=== PATIENT | female | born 1995 | race Caucasian/White ===

== ENCOUNTER 2017-10-08 02:30 | Inpatient (IN) | payer SELFPAY ==
[2017-10-08] MEDS: Lactated Ringers 1,000 ML 50 ML IV ×3 (03:35→11:05)
[2017-10-08 03:49] VITALS: BMI 31.1
[2017-10-08 04:06] LABS: Hematocrit 36.2 % (37-47); Hemoglobin 12.4 g/dl (12.0-15.0); Mean Corp Hgb Conc 34.3 g/gl (32-36); Mean Corpuscular Hgb 30.9 pg (27.0-32.0); Mean Corpuscular Volume 90.3 fL (81-99); Mean Platelet Vol. 10.8 fl (6.2-12.0); Platelet Count 181 K/mm3 (150-450); RBC Distribution Width CV 12.2 % (11.6-14.6); Red Blood Count 4.01 M/mm3 (4.2-5.4); White Blood Count 12.3 K/mm3 (4.4-11.0)
[2017-10-08 04:07] LABS: Scan Indicated on CBC? Y/N NO
[2017-10-08 04:14] LABS: ALB/GLOB Ratio 0.7 RATIO (0.9-2.4); AST(SGOT) 15 U/L (15-37); Alanine Aminotransfer ALT/SGPT 17 U/L (12-78); Albumin, Serum 2.9 g/dL (3.4-5.0); Alkaline Phosphatase 192 U/L (45-117); Anion Gap 12 (5-15); BUN 10 mg/dL (7-18); BUN/Creat Ratio 15.7 RATIO (10-20); Calcium,Total 8.5 mg/dL (8.5-10.1); Chloride 106 mmol/L (98-107); Creatinine, Serum 0.64 mg/dL (0.55-1.02); EST Glomerular Filtration Rate 121 mL/min (>60); Est Glom Filt Rate - Afr Amer 146 mL/min (>60); Estimated Creatinine Clearance 112.12 ml/min; Globulin 4.3 g/dL (2.2-4.2); Glucose 87 mg/dL (70-110); Potassium 3.9 mmol/L (3.5-5.1); Protein, Total 7.2 g/dL (6.4-8.2); Sodium Level 139 mmol/L (136-145)
[2017-10-08] MEDS: Nalbuphine 10 MG/ML Ampul IV (06:38)
--- NOTE | 2017-10-08 06:52 | HP.PCM_ITS ---
(1) Active labor at term Status: Acute (2) Supervision of normal first in third trimester Status: Acute Comment: SIDDHARTHA 10/07/17 gender surprise Cole ZAIDI from [facility] (3) Abnormal ultrasound Status: Acute Comment: initial finding of increased nuchal fold- fu imaging with MFM normal on 06/01/17 at [facility]. 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 bps borderline elevated. she has had a complicated by an initial abnormal ultrasound with a thickened nuchal fold that came back WNL once referred to [facility]. Pertinent Past Medical History: negative PSH: negative OB History: primigravid Prenatals: rpr NR hep b neg rubella nonimmune blood type antibody positive Allergies No Known Allergies Allergy (Unverified 10/08/17 03:51) Current Medications Acetaminophen (Tylenol) 325 - 650 mg PO Q4H PRN PRN PRN Reason: PAIN OR FEVER >100.4F Al Hydroxide/Mg Hydroxide (Mylanta Ii) 15 - 30 ml PO Q4H PRN PRN PRN Reason: INDIGESTION Citric Acid/Sodium Citrate (Bicitra) 30 ml PO UD PRN Lactated Ringer's () 1,000 mls @ 50 mls/hr IV .Q20H BREN Last Admin: 10/08/17 03:35 Dose: 50 mls/hr Penicillin G Potassium/Dextrose (Penicillin G Potassium) 3 mu in 50 mls @ 100 mls/hr IV Q4H BREN Nalbuphine HCl (Nubain) 5 - 10 mg IV Q3H PRN PRN PRN Reason: PAIN (4-10/10) Last Admin: 10/08/17 06:38 Dose: 10 mg Ondansetron HCl (Zofran) 4 mg IV Q8H PRN PRN PRN Reason: NAUSEA Promethazine HCl (Phenergan (Ll)) 6.25 - 12.5 mg IV Q4H PRN PRN; Protocol PRN Reason: IF NAUSEA PERSISTS Sodium Chloride () 5 - 15 ml IV UD BREN Last Admin: 10/08/17 04:14 Dose: Not Given Smoking Status: Never smoker Alcohol: None Drug Use: none Number of Fetus(es): 1 - FHTs 140 moderate variability reactive no decels category I tracing toco q 2 minutes Review of Systems Constitutional: Denies: Chills, Fever, Weight Change HEENT: Denies: Head Aches, Sinus Congestion, Sinus Drainage Cardiovascular: Denies: Chest Pain, Palpitations Respiratory: Denies: Cough, Shortness of breath at rest, Sputum production Gastrointestinal: Reports: Abdominal Pain. Denies: Nausea, Vomiting Genitourinary: Denies: Dysuria Musculoskeletal: Denies: Joint Pain, Joint Tenderness Skin: Denies: Rash, Wounds Neurological: Denies: Numbness, Tingling, Focal weakness Psychiatric: Denies: Anxiety, Depression, Homicidal Ideations, Suicidal Ideations Hematologic/ Lymphatic: Denies: Easy Bruising, Easy Bleeding Physical Exam General: Alert, Oriented x3, No apparent distress Cardiovascular: Regular rate Lungs: Normal air movement Abdomen: Bowel Sounds Present, Gravid Estimated gestational size: Appropriate for gestational size Presentation: Cephalic Cervix Dilation (cm): 4 Station: -1 Effacement (%): 90 Assessment/Plan Active and Suspected Problems (Last Reviewed 10/06/17 @ 11:07 by Shi Pretty) Active labor at term (Acute) IAL expectant management, minimal intervention per patient wishes. labs WNL. arom clear fluid
[2017-10-08] MEDS: Acetaminophen 325 MG Tablet PO (12:18)
[2017-10-08 12:58] LABS: Chlamydia Trachomatis by PCR Negative (Negative); Neisserai gonorrhoeae by PCR Negative (Negative); Probe Check PASS; Sample Adequacy Control PASS; Specimen Processing Control PASS
[2017-10-08] MEDS: Oxytocin 30 units/NS 500 ml 30 UNITS/500 ML IV.SOLN 334 UNITS IV (13:10)
[2017-10-08] MEDS: Oxytocin 30 units/NS 500 ml 30 UNITS/500 ML IV.SOLN 167 UNITS IV (13:40)
--- NOTE | 2017-10-08 13:47 | OP.PCM_ITS ---
(1) Active labor at term Status: Acute (2) Supervision of normal first in third trimester Status: Acute Comment: SIDDHARTHA 10/07/17 gender surprise Cole ZAIDI from [facility] (3) Abnormal ultrasound Status: Acute Comment: initial finding of increased nuchal fold- fu imaging with MFM normal on 06/01/17 at [facility]. 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 (5) Rubella non-immune status, antepartum Status: Acute Comment: MMR PP (6) Positive GBS test Status: Acute Comment: pcn in labor (7) Normal delivery at term Status: Acute Vaginal Delivery Maternal Presentation: Active Labor 22 yo @ 40w1d presents IAL Amniotic Membrane Rupture Type: Artificial Amniotic Fluid Description: Clear Final SIDDHARTHA: 10/07/17 Gestational age: 40 Weeks and 1 Days Date of Procedure: 10/08/17 Pre-Operative Diagnosis: ial Post-Operative Diagnosis: same Surgery/ Procedure Performed: Spontaneous Vaginal Delivery Type of Anesthesia: Epidural Description of Procedure: Patient began pushing and delivered the head in the VIVIAN presentation. The head was delivered atraumatically . The anterior and posterior shoulders delivered without complication followed by the rest of the and the infant was placed on the maternal abdomen. It was immediately noted that the umbilical cord had snapped upon placing the baby on the abdomen and was noted to have occurred approximately 5 cm from the umbilical insertion of the baby. It was felt that very minimal blood but had been lost from this but pediatricians were alerted to watch the baby . gentle traction was applied to the cord and the placenta delivered spontaneously immediately following it was noted to be intact with three-vessel cord. The perineum and vagina were inspected and noted to have a second-degree laceration which was repaired in the usual fashion and a small right vaginal blood vessel that was bleeding that was remedied with 3-0 Vicryl repeat.. EBL was re-100. Patient and tolerated delivery well. Presentation: VIVIAN Placental Delivery Description: Spontaneous Cord Vessel Description: 3 Vessels Cord Entanglement: None Estimated Blood Loss: 300 A gender: Female Episiotomy Description: None Laceration: None Medications given after delivery: IV Pitocin Complications: None
[2017-10-08] MEDS: 0.9% Saline Lock 10 ML Syringe IV (14:43)
[2017-10-08 18:00] VITALS: BP 141/85; PULSE 100; RESP 16; TEMP 37.6
[2017-10-08] MEDS: Naproxen 250 MG Tablet PO (18:13)
--- NOTE | 2017-10-08 19:22 | NURSING ---
1800 up to the bathroom with assistance, voids 200ml. States she feels like she emptied her bladder. FF at U but slightly to the right.
[2017-10-08 21:00] VITALS: BP 131/87; PULSE 92; RESP 18; TEMP 37.1; O2SAT 96
[2017-10-08] MEDS: Prenatal Vits Tablet 1 TABLET PO (23:02)
[2017-10-08 23:20] VITALS: BP 118/73; PULSE 95; RESP 18; TEMP 36.7; O2SAT 95
[2017-10-09 04:10] VITALS: BP 117/75; PULSE 75; RESP 18; TEMP 36.8; O2SAT 97
[2017-10-09 08:22] VITALS: BP 116/69; PULSE 74; RESP 18; TEMP 37
[2017-10-09] MEDS: Naproxen 250 MG Tablet PO (12:10)
[2017-10-09 12:30] VITALS: BP 112/65; PULSE 75; RESP 18; TEMP 36.7
--- NOTE | 2017-10-09 13:29 | NURSING ---
mild edema noted. Pt given naprosyn for inflammation. Enc. ice packs.
[2017-10-09 20:00] VITALS: BP 129/68; PULSE 84; RESP 18; TEMP 36.8; O2SAT 97
--- NOTE | 2017-10-09 21:05 | PCM.PN.OB ---
Patient Problems: Active and Suspected Problems (Last Reviewed 10/06/17 @ 11:07 by Shi Pretty) Active labor at term (Acute) Normal delivery at term (Acute) Subjective: doing well n ocomplaints - Physical Exam General: Alert, Oriented x3 Vital Signs Temp Pulse Resp BP Pulse Ox 98.2 F 84 18 129/68 H 97 10/09/17 20:00 10/09/17 20:00 10/09/17 20:00 10/09/17 20:00 10/09/17 20:00 Oxygen Delivery Method Room Air Weight: 176 lb Body Mass Index (BMI) 31.1 Intake and Output for Last 24 Hours 10/07/17 10/08/17 10/09/17 23:59 23:59 23:59 Intake Total 2830 / 2830 Output Total 1700 / 1700 Balance 1130 / 1130 Assessment/Plan Active and Suspected Problems (Last Reviewed 10/06/17 @ 11:07 by Shi Pretty) Active labor at term (Acute) Normal delivery at term (Acute) s/p routine care
--- NOTE | 2017-10-09 21:07 | PCM.DCVAG ---
Discharge Diet: No Restrictions Discharge Activity: Return to Normal Activity, May not drive while taking narcotic pain medications., May Shower May resume sexual activity in: 4-6 weeks Additional Activity Instructions:: Nothing in the vagina for 4-6 weeks. You may return to work/school in 6 weeks. Call your doctor if your incision/area has: Continuous Slow Oozing, Sudden Increased Bleeding, Increased Pain/ Swelling, Increased Redness, Foul Smelling Discharge Additional Instructions: If you experience any of the following, contact your healthcare provider. Bleeding that soaks a pad every hour for 2 hours Fever 100.4 or higher Unrelieved incision or abdominal pain Swelling, redness, discharge or bleeding from your incision or episiotomy site Your incision begins to separate Problems urinating (including inability to urinate or burning while urinating). Visual changes Severe headache Flu-like symptoms Pain or redness in one of both of your breasts Pain, warmth, tenderness or swelling in your legs, especially the calf area Frequent nausea and vomiting Symptoms of depression or anxiety If you experience any of the following, call 911 or go to the nearest Emergency Room. Chest pain Problems breathing Seizure activity Partial or complete paralysis of a body part, slurred speech, weakness or drooping of the face, or a sudden inability to walk or hold your balance Allergies/Adverse Reactions: Allergies No Known Allergies Allergy (Unverified 10/08/17 03:51) Medications to take at Discharge vitamin #56-iron 35 mg and 5 mg-folic acid 1 mg-dha capsule 1 cap PO QHS 08/14/17 Please Follow Up With: Alize Machuca MD - [phone] When: Call to make an appointment with your doctor in 6 weeks. If you had elevated Blood Pressure or 4th degree laceration you will need to be seen in 2 weeks.
--- NOTE | 2017-10-09 21:08 | DCINST_ITS ---
Discharge Diet: No Restrictions Discharge Activity: Return to Normal Activity, May not drive while taking narcotic pain medications., May Shower May resume sexual activity in: 4-6 weeks Additional Activity Instructions:: Nothing in the vagina for 4-6 weeks. You may return to work/school in 6 weeks. Call your doctor if your incision/area has: Continuous Slow Oozing, Sudden Increased Bleeding, Increased Pain/ Swelling, Increased Redness, Foul Smelling Discharge Additional Instructions: If you experience any of the following, contact your healthcare provider. * Bleeding that soaks a pad every hour for 2 hours * Fever 100.4 or higher * Unrelieved incision or abdominal pain * Swelling, redness, discharge or bleeding from your incision or episiotomy site * Your incision begins to separate * Problems urinating (including inability to urinate or burning while urinating) . * Visual changes * Severe headache * Flu-like symptoms * Pain or redness in one of both of your breasts * Pain, warmth, tenderness or swelling in your legs, especially the calf area * Frequent nausea and vomiting * Symptoms of depression or anxiety If you experience any of the following, call 911 or go to the nearest Emergency Room. * Chest pain * Problems breathing * Seizure activity * Partial or complete paralysis of a body part, slurred speech, weakness or drooping of the face, or a sudden inability to walk or hold your balance Allergies/Adverse Reactions: Allergies No Known Allergies Allergy (Unverified 10/08/17 03:51) Medications to take at Discharge vitamin #56-iron 35 mg and 5 mg-folic acid 1 mg-dha capsule 1 cap PO QHS 08/14/17 Please Follow Up With: Alize Machuca MD - [phone] When: Call to make an appointment with your doctor in 6 weeks. If you had elevated Blood Pressure or 4th degree laceration you will need to be seen in 2 weeks.
[2017-10-09] MEDS: Prenatal Vits Tablet 1 TABLET PO (22:27)
[2017-10-09] MEDS: Senna/Docusate Sodium 1 Tablet PO (22:27)
[2017-10-10 02:00] VITALS: BP 129/68; PULSE 92; RESP 18; TEMP 36.4; O2SAT 97
[2017-10-10 09:00] VITALS: BP 135/68; PULSE 72; RESP 16; TEMP 36.8; O2SAT 97
--- NOTE | 2017-10-10 11:45 | PN.OBGYN_ITS ---
Patient Problems: Active and Suspected Problems (Last Reviewed 10/06/17 @ 11:07 by Shi Pretty) Active labor at term (Acute) Normal delivery at term (Acute) Subjective: doing well n ocomplaints - Physical Exam General: Alert, Oriented x3, Cooperative Vital Signs Temp Pulse Resp BP Pulse Ox 98.3 F 72 16 135/68 H 97 10/10/17 09:00 10/10/17 09:00 10/10/17 09:00 10/10/17 09:00 10/10/17 09:00 Oxygen Delivery Method Room Air Weight: 176 lb Body Mass Index (BMI) 31.1 Intake and Output for Last 24 Hours 10/08/17 10/09/17 10/10/17 23:59 23:59 23:59 Intake Total 2830 / 2830 Output Total 1700 / 1700 Balance 1130 / 1130 Assessment/Plan Active and Suspected Problems (Last Reviewed 10/06/17 @ 11:07 by Shi Pretty) Active labor at term (Acute) Normal delivery at term (Acute) s/p routine care [facility]
--- NOTE | 2017-10-10 12:55 | NURSING ---
mother and baby id bands verified with mother. mother signed baby discharge form.
== END 2017-10-10 12:12 | disposition home or self-care (01) | DRG 774 ==
PROVIDERS: Admitting Provider Obstetrics & Gynecology; Visit Provider Obstetrics & Gynecology
DX: O48.0 Post-term pregnancy (principal); O98.82 Other maternal infectious and parasitic diseases complicating childbirth; Z3A.40 40 weeks gestation of pregnancy; O69.89X0 Labor and delivery complicated by other cord complications, not applicable or unspecified; B95.1 Streptococcus, group B, as the cause of diseases classified elsewhere; O70.1 Second degree perineal laceration during delivery; Z37.0 Single live birth; Z84.3 Family history of consanguinity
CPT/HCPCS: 59025; 59050; 80053; 85027; 86850; 86900; 87491; 87591; 99218; J7120; A4216; G0378

== ENCOUNTER → 2019-07-11 11:58 | Outpatient (CLI) | payer OTHER, SELFPAY ==
[2019-07-11 11:14] VITALS: BMI 26.7
[2019-07-11 12:49] LABS: Absolute Lymphocyte Count 1.46 X10^3/uL (0.83-4.51); Absolute Neutrophil Count 5.7 X10^3/uL (2.0-7.7); Basophil# 0.02 X10^3/uL; Basophil% 0.3 % (0-1); Eosinophil# 0.03 X10^3/uL; Eosinophils% 0.4 % (0-5); Hemoglobin 13.7 g/dL (12.0-15.0); Lymphocyte # 1.46 X10^3/ul (4.0); Lymphocyte % 18.7 % (19-41); Mean Corp Hgb Conc 34.3 g/dL (32-36); Mean Corpuscular Volume 87.7 fL (81-99); Mean Platelet Vol. 9.8 fl (6.2-12.0); Monocyte# 0.52 X10^3/uL; Monocyte% 6.7 % (0-10); NRBC Flagged by Analyzer 0 % (0-5); Neutrophil # 5.73 X10^3/uL (2.7-7.7); Neutrophil % 73.5 % (47-70); Platelet Count 251 K/mm3 (150-450); RBC Distribution Width CV 11.8 % (11.6-14.6); RBC Distribution Width SD 37.9 fl (35.1-43.9); Red Blood Count 4.56 M/mm3 (4.2-5.4); White Blood Count 7.8 K/mm3 (4.4-11.0)
[2019-07-11 14:00] LABS: HIV - WCH Non-Reactive (Nonreactive); Hepatitis B Surface Antigen Non-Reactive (Nonreactive); Rubella IgG 12.9 IU/mL
[2019-07-11 15:32] LABS: Chlamydia Trachomatis by PCR Negative (Negative); Neisserai gonorrhoeae by PCR Negative (Negative); Probe Check PASS; Sample Adequacy Control PASS; Specimen Processing Control PASS
[2019-07-12 03:08] LABS: Rapid Plasmin Reagin (RPR) NONREACTIVE (NONREACTIVE)
[2019-07-14 13:06] LABS: HPV Reflexed? NOT INDICATED
== END ==
PROVIDERS: Family Provider Family Medicine; PCP Family Medicine; Referring Provider Nurse Practitioner Women's Health; Visit Provider Nurse Practitioner Women's Health
DX: Z34.90 Encounter for supervision of normal pregnancy, unspecified, unspecified trimester (principal); Z12.4 Encounter for screening for malignant neoplasm of cervix
CPT/HCPCS: 36415; 85025; 86592; 86703; 86762; 86850; 86900; 86901; 87086; 87088; 87340; 87491; 87591; 88175; G0145

== ENCOUNTER → 2019-09-19 13:15 | Outpatient (CLI) | payer OTHER, SELFPAY ==
[2019-09-06 14:59] VITALS: BMI 26.7
--- NOTE | 2019-09-19 13:17 | US_ITS ---
STUDY: SECOND AND THIRD TRIMESTER OBSTETRICAL ULTRASOUND REASON FOR EXAM: Female, 24 years old anatomy LMP: May 01, 2019. TECHNIQUE: Transabdominal TECHNICAL QUALITY: Adequate. PRIOR ULTRASOUND: None. FINDINGS: There is a single intrauterine fetus. The fetus is in a transverse lie with the head on the maternal right side. There is demonstrated cardiac activity with a heart rate of 152 bpm. There is a normal amniotic fluid volume. The largest amniotic fluid pocket measures 6.0 cm x 4.7 cm. The amniotic fluid index (MAYRA) is within normal limits. The placenta is anterior in location and is not low lying. There are Grade 0 placental changes. The cervix measures 4.2 cm in length. The bilateral adnexal regions are normal. BIOMETRY: BPD: 4.44 cm: 19 weeks, 3 days HC: 17.34 cm: 19 weeks, 6 days AC: 15.51 cm: 20 weeks, 4 days FL: 3.21 cm: 20 weeks, 0 days CI: 73% FL/BPD: 72% FL/HC: FL/AC: 21% HC/AC: 1.12 age by current US: 19 weeks, 6 days. SIDDHARTHA by current US: February 07, 2020. Estimated weight: 344 grams, +/- 51 grams, 45 %. Age by LMP: 20 weeks, 1 days. SIDDHARTHA by LMP: February 05, 2020. ANATOMY: Gender: Female Cranium: Normal lateral ventricles. Normal choroid plexus. Normal cerebellum. Normal cisterna magna. Normal face, nose and lips. Chest: Normal 4-chamber heart. Abdomen/Pelvis: Normal diaphragm. Normal stomach. Normal abdominal wall. Normal cord insertion. Normal 3 vessel cord. Normal kidneys. Normal bladder. Spine: Limited visualization of the spine. Follow-up is recommended. Extremities: Normal bilateral upper extremities. Normal bilateral lower extremities. US/OB Anatomy Scan IMPRESSION: Single live intrauterine gestation with a mean gestational age of 19 weeks and 6 days. Limited visualization of the spine. Follow-up examination is recommended. Electronically Signed: Juvencio Cabrera, at 15:56 EST , Service support ,
== END ==
PROVIDERS: Family Provider Family Medicine; PCP Family Medicine; Referring Provider Obstetrics & Gynecology; Visit Provider Obstetrics & Gynecology
DX: Z34.80 Encounter for supervision of other normal pregnancy, unspecified trimester (principal)
CPT/HCPCS: 76805

== ENCOUNTER → 2019-11-22 14:41 | Outpatient (CLI) | payer OTHER, SELFPAY ==
[2019-11-02 15:29] VITALS: BMI 26.7
[2019-11-22 15:13] LABS: Absolute Lymphocyte Count 1.49 X10^3/uL (0.83-4.51); Absolute Neutrophil Count 5.7 X10^3/uL (2.0-7.7); Basophil# 0.01 X10^3/uL; Basophil% 0.1 % (0-1); Eosinophil# 0.03 X10^3/uL; Eosinophils% 0.4 % (0-5); Lymphocyte # 1.49 X10^3/ul (4.0); Lymphocyte % 19.1 % (19-41); Mean Corp Hgb Conc 34.3 g/dL (32-36); Mean Corpuscular Hgb 31.2 pg (27.0-32.0); Mean Corpuscular Volume 90.9 fL (81-99); Mean Platelet Vol. 9.3 fl (6.2-12.0); Monocyte# 0.55 X10^3/uL; Monocyte% 7.1 % (0-10); NRBC Flagged by Analyzer 0 % (0-5); Neutrophil # 5.68 X10^3/uL (2.7-7.7); Neutrophil % 72.8 % (47-70); Platelet Count 203 K/mm3 (150-450); RBC Distribution Width CV 12.2 % (11.6-14.6); Red Blood Count 3.85 M/mm3 (4.2-5.4); White Blood Count 7.8 K/mm3 (4.4-11.0)
[2019-11-22 15:19] LABS: Glucose Challenge Gest 1H 50g 128 mg/dL (70-140)
== END ==
PROVIDERS: PCP Family Medicine; Referring Provider Obstetrics & Gynecology; Visit Provider Obstetrics & Gynecology
DX: Z34.80 Encounter for supervision of other normal pregnancy, unspecified trimester (principal)
CPT/HCPCS: 36415; 82950; 85025

== ENCOUNTER → 2020-01-14 | Outpatient (CLI) | payer OTHER, SELFPAY ==
[2020-01-14 14:27] VITALS: BMI 26.7
== END | disposition home or self-care (01) ==
PROVIDERS: PCP Family Medicine; Visit Provider Obstetrics & Gynecology
DX: Z34.93 Encounter for supervision of normal pregnancy, unspecified, third trimester (principal); Z3A.36 36 weeks gestation of pregnancy
CPT/HCPCS: 87077; 87081; 87186

== ENCOUNTER 2020-01-21 15:45 | Outpatient (CLI) | payer OTHER, SELFPAY ==
[2020-01-21 15:09] VITALS: BMI 26.7
[2020-01-21 15:58] VITALS: BP 137/90; PULSE 76
[2020-01-21 16:13] VITALS: BP 131/89; PULSE 73
[2020-01-21 16:20] VITALS: BMI 30.7
[2020-01-21 16:28] VITALS: BP 118/83; PULSE 86
[2020-01-21 16:44] VITALS: BP 129/86; PULSE 80
[2020-01-21 16:46] LABS: Hematocrit 34.7 % (37-47); Hemoglobin 11.9 g/dL (12.0-15.0); Mean Corp Hgb Conc 34.3 g/dL (32-36); Mean Corpuscular Hgb 30.6 pg (27.0-32.0); Mean Corpuscular Volume 89.2 fL (81-99); Mean Platelet Vol. 10.3 fl (6.2-12.0); Platelet Count 182 K/mm3 (150-450); RBC Distribution Width CV 12.5 % (11.6-14.6); RBC Distribution Width SD 39.8 fl (35.1-43.9); Red Blood Count 3.89 M/mm3 (4.2-5.4); White Blood Count 7.5 K/mm3 (4.4-11.0)
[2020-01-21 17:09] LABS: Protein, Urine (Random) 11.1 mg/dL (<11.9); Protein:Creat Ratio 209 mg/g CRE (0-200)
[2020-01-21 17:13] VITALS: BP 132/83; PULSE 87
--- NOTE | 2020-01-21 17:16 | OB.TRI.PN ---
Progress Notes Date of Service: 01/21/20 Progress Note: Patient presents for triage evaluation secondary to elevated bp in office FHT: 140 Moderate variability reactive no decelerations category I tracing [place]: irregular Contractions Assessment and plan: elevated bps- repeat all WNL and labs normal, Reactive NST, reassuring maternal and status patient discharged to home to follow-up as scheduled. See problem list details for additional plan information. Laboratory Studies: Laboratory Tests 01/21/20 01/21/20 Range/Units 16:30 16:30 WBC 7.5 (4.4-11.0) K/mm3 RBC 3.89 L (4.2-5.4) M/mm3 Hgb 11.9 L (12.0-15.0) g/dL Hct 34.7 L (37-47) % MCV 89.2 (81-99) fL MCH 30.6 (27.0-32.0) pg MCHC 34.3 (32-36) g/dL RDW Std Deviation 39.8 (35.1-43.9) fl RDW Coeff of Jovita 12.5 (11.6-14.6) % Plt Count 182 (150-450) K/mm3 MPV 10.3 (6.2-12.0) fl U Random Total Protein 11.1 (<11.9) mg/dL Urine Creatinine 53.20 (NO RANGE EST.) mg/dL Protein/Creatinin Ratio 209 H (0-200) mg/g CRE - Problem List (1) Elevated blood pressure affecting in third trimester, antepartum Status: Acute Comment: seen in triage 01/20- repeta bps WNL and labs WNL no proteinuria. reviewed precautions Multi Select Codes - Urinary/Genital Urinary/Genital CPT Codes: 07014-98 non-stress test Interp
[2020-01-21 17:27] LABS: AST(SGOT) 14 U/L (15-37); Alanine Aminotransfer ALT/SGPT 13 U/L (13-56); Creatinine, Serum 0.58 mg/dL (0.55-1.02); EST Glomerular Filtration Rate 131 mL/min (>60); Est Glom Filt Rate - Afr Amer 159 mL/min (>60); Estimated Creatinine Clearance 136.39 ml/min; Uric Acid 4.5 mg/dL (2.6-6.0)
[2020-01-21 17:38] LABS: International Normalized Ratio 0.9; Prothrombin Time (Protime)PT. 12.1 SECONDS (11.7-14.9)
[2020-01-21 17:39] LABS: Partial Thromboplast Time 27.2 Seconds (24.1-36.2)
== END 2020-01-21 18:00 | disposition home or self-care (01) ==
LOC: WPOUT 15:53 → WP 15:54
PROVIDERS: PCP Family Medicine; Referring Provider Obstetrics & Gynecology; Visit Provider Obstetrics & Gynecology
DX: O26.899 Other specified pregnancy related conditions, unspecified trimester (principal); R03.0 Elevated blood-pressure reading, without diagnosis of hypertension; Z3A.00 Weeks of gestation of pregnancy not specified
CPT/HCPCS: 36415; 59025; 59050; 82565; 82570; 84156; 84450; 84460; 84550; 85027; 85610; 85730; 99218; G0378

== ENCOUNTER 2020-01-25 13:10 | Outpatient (CLI) | payer OTHER, SELFPAY ==
[2020-01-25 13:22] VITALS: TEMP 36.8; O2SAT 96
[2020-01-25 13:24] VITALS: BP 116/81; PULSE 91
[2020-01-25 13:39] VITALS: BP 118/76; PULSE 85
[2020-01-25 13:48] VITALS: BMI 30.3
[2020-01-25 13:51] LABS: Hematocrit 33.2 % (37-47); Hemoglobin 11.6 g/dL (12.0-15.0); Mean Corp Hgb Conc 34.9 g/dL (32-36); Mean Corpuscular Hgb 31.4 pg (27.0-32.0); Mean Platelet Vol. 10.1 fl (6.2-12.0); Platelet Count 182 K/mm3 (150-450); RBC Distribution Width CV 12.5 % (11.6-14.6); RBC Distribution Width SD 40.4 fl (35.1-43.9); Red Blood Count 3.69 M/mm3 (4.2-5.4); White Blood Count 7.3 K/mm3 (4.4-11.0)
[2020-01-25 13:54] VITALS: BP 117/78; PULSE 79
[2020-01-25 14:01] LABS: Prothrombin Time (Protime)PT. 12.3 SECONDS (11.7-14.9)
[2020-01-25 14:03] LABS: Protein, Urine (Random) 11.5 mg/dL (<11.9); Protein:Creat Ratio 156 mg/g CRE (0-200)
[2020-01-25 14:06] LABS: AST(SGOT) 14 U/L (15-37); Alanine Aminotransfer ALT/SGPT 12 U/L (13-56); Creatinine, Serum 0.68 mg/dL (0.55-1.02); EST Glomerular Filtration Rate 109 mL/min (>60); Est Glom Filt Rate - Afr Amer 132 mL/min (>60); Estimated Creatinine Clearance 116.34 ml/min
[2020-01-25 14:09] VITALS: BP 112/75; PULSE 89
--- NOTE | 2020-01-25 14:11 | OB.TRI.PN_ITS ---
Progress Notes Date of Service: 01/25/20 Progress Note: Patient presents for triage evaluation secondary to abdominal pain and fht reassuring Assessment and plan: Nominal pain and all normal blood pressures but preeclampsia labs sent due to recent borderline elevated pressures. Reactive NST, reassuring maternal and status patient discharged to home to follow- up as scheduled. See problem list details for additional plan information. Laboratory Studies: Laboratory Tests 01/25/20 01/25/20 01/25/20 Range/Units 13:42 13:42 13:42 WBC (4.4-11.0) K/mm3 RBC (4.2-5.4) M/mm3 Hgb (12.0-15.0) g/dL Hct (37-47) % MCV (81-99) fL MCH (27.0-32.0) pg MCHC (32-36) g/dL RDW Std Deviation (35.1-43.9) fl RDW Coeff of Jovita (11.6-14.6) % Plt Count (150-450) K/mm3 MPV (6.2-12.0) fl PT 12.3 (11.7-14.9) SECONDS INR 1.0 APTT 26.0 (24.1-36.2) Seconds Creatinine 0.68 (0.55-1.02) mg/dL Estim Creat Clear Calc 116.34 ml/min Est GFR (MDRD) Af Amer 132 (>60) mL/min Est GFR (MDRD) Non-Af 109 (>60) mL/min Uric Acid 5.0 (2.6-6.0) mg/dL AST 14 L (15-37) U/L ALT 12 L (13-56) U/L U Random Total Protein 11.5 (<11.9) mg/dL Urine Creatinine 73.70 (NO RANGE EST.) mg/dL Protein/Creatinin Ratio 156 (0-200) mg/g CRE 01/25/20 Range/Units 13:42 WBC 7.3 (4.4-11.0) K/mm3 RBC 3.69 L (4.2-5.4) M/mm3 Hgb 11.6 L (12.0-15.0) g/dL Hct 33.2 L (37-47) % MCV 90.0 (81-99) fL MCH 31.4 (27.0-32.0) pg MCHC 34.9 (32-36) g/dL RDW Std Deviation 40.4 (35.1-43.9) fl RDW Coeff of Jovita 12.5 (11.6-14.6) % Plt Count 182 (150-450) K/mm3 MPV 10.1 (6.2-12.0) fl PT (11.7-14.9) SECONDS INR APTT (24.1-36.2) Seconds Creatinine (0.55-1.02) mg/dL Estim Creat Clear Calc ml/min Est GFR (MDRD) Af Amer (>60) mL/min Est GFR (MDRD) Non-Af (>60) mL/min Uric Acid (2.6-6.0) mg/dL AST (15-37) U/L ALT (13-56) U/L U Random Total Protein (<11.9) mg/dL Urine Creatinine (NO RANGE EST.) mg/dL Protein/Creatinin Ratio (0-200) mg/g CRE
== END 2020-01-25 14:25 | disposition home or self-care (01) ==
LOC: WPOUT 13:14 → OBT 13:14
PROVIDERS: PCP Family Medicine; Referring Provider Obstetrics & Gynecology; Visit Provider Obstetrics & Gynecology
DX: O26.899 Other specified pregnancy related conditions, unspecified trimester (principal); R10.9 Unspecified abdominal pain; Z3A.00 Weeks of gestation of pregnancy not specified
CPT/HCPCS: 36415; 59025; 59050; 82565; 82570; 84156; 84450; 84460; 84550; 85027; 85610; 85730; 99218; G0378

== ENCOUNTER 2020-01-30 02:40 | Inpatient (IN) | payer SELFPAY, OTHER ==
[2019-07-11 11:14] VITALS: BMI 26.7
[2020-01-28 16:16] VITALS: BMI 30.3
[2020-01-30] VITALS (38 sets, daily range): BP systolic 104–134; BP diastolic 65–91; PULSE 57–114; RESP 16–18; TEMP 36.4–37.6; O2SAT 83–100; BMI 29.9
[2020-01-30] MEDS: Lactated Ringers 1,000 ML 50 ML IV (02:50)
[2020-01-30] MEDS: Lactated Ringers 500 ML 999 ML IV (02:50)
[2020-01-30 03:04] LABS: Absolute Lymphocyte Count 1.26 X10^3/uL (0.83-4.51); Absolute Neutrophil Count 3.4 X10^3/uL (2.0-7.7); Basophil# 0.01 X10^3/uL; Basophil% 0.2 % (0-1); Hematocrit 34.7 % (37-47); Hemoglobin 11.8 g/dL (12.0-15.0); Lymphocyte # 1.26 X10^3/ul (4.0); Lymphocyte % 24.5 % (19-41); Mean Corpuscular Hgb 30.4 pg (27.0-32.0); Mean Corpuscular Volume 89.4 fL (81-99); Mean Platelet Vol. 10.4 fl (6.2-12.0); Monocyte# 0.45 X10^3/uL; Monocyte% 8.7 % (0-10); NRBC Flagged by Analyzer 0 % (0-5); Neutrophil # 3.41 X10^3/uL (2.7-7.7); Neutrophil % 66.2 % (47-70); Platelet Count 159 K/mm3 (150-450); RBC Distribution Width CV 12.4 % (11.6-14.6); RBC Distribution Width SD 39.8 fl (35.1-43.9); Red Blood Count 3.88 M/mm3 (4.2-5.4); White Blood Count 5.2 K/mm3 (4.4-11.0)
--- NOTE | 2020-01-30 03:15 | PCM.HP.OB ---
- Problem List (1) Active labor at term Status: Acute (2) GBS (group B Streptococcus carrier), +RV culture, currently Status: Acute (3) Twin with loss and retention of one fetus, antepartum Status: Acute Comment: nonviable twin loss approx 7wk. (4) Supervision of other normal Status: Acute Comment: PRR Grav 2/ SIDDHARTHA PC Keyonna Spouse Chris- normal anatomy (5) Status: Acute Qualifiers: (6) Consanguinity Status: Acute Comment: patient and are 3rd cousins History Date of Admission: 10/08/17 Final SIDDHARTHA: 02/05/20 Gestational age: 39 Weeks and 1 Days History of this : This is a 25 year-old, presents at 39 weeks gestational age in active labor 5 cm dilated. Patient is a history of a previous term uncomplicated vaginal delivery. She has had contractions increasing over the last couple of hours. Medical History: Medical History (Last Reviewed 01/28/20 @ 15:20 by Chapis Hardy) Consanguinity (Acute) Z84.3 patient and are 3rd cousins Allergies No Known Allergies Allergy (Verified 01/30/20 02:37) Home Medications: Home Medications Sertraline HCl 50 mg PO DAILY 01/30/20 Smoking Status: Never smoker Alcohol: None NST - FHR Rate Baby A Baseline: 130 Variability:: Moderate Accelerations:: 15 x 15 Decelerations:: None NST Reactive:: Yes FHR Category:: Category I Uterine Activity:: irregular History Past Pregnancies: Past Pregnancies Pregancy History 2 Elective abortions Hx Para 1 Spontaneous abortions Hx # Term Pregnancies Ectopic pregnancies Hx # Pregnancies Multiple births # of living children 1 Past Pregnancies Del. Date Name GA/Weeks Outcome Route Bth Weight Infant Gen Labor Lgth Anesthesia Del Locatn Provider FOB 10/08/17 Keyonna live - full term 7lbs 4 ounces SM Labs: Mom's Labs & Results 01/30/20 01/30/20 02:50 02:50 WBC 5.2 RBC 3.88 L Hgb 11.8 L Hct 34.7 L MCV 89.4 MCH 30.4 MCHC 34.0 RDW Std Deviation 39.8 RDW Coeff of Jovita 12.4 Plt Count 159 MPV 10.4 Immature Gran % (Auto) 0.400 Neut % (Auto) 66.2 Lymph % (Auto) 24.5 [place] % (Auto) 8.7 Eos % (Auto) 0.0 Baso % (Auto) 0.2 Absolute Neuts (auto) 3.4 Absolute Lymphs (auto) 1.26 Nucleated RBC % 0 Blood Type Pending Antibody Screen Pending Course Did the patient receive Yes care? Labs Blood Type: O RH: POSITIVE RPR/VDRL/Syphilis Nonreactive Rubella status Immune HbSAg Negative Date Done: 07/11/19 Chlamydia Negative Gonorrhea Negative HIV/AIDS Non-Reactive Group B Strep: Positive Current Obstetrical History Gestational Diabetes No Incompetent Cervix No Infertility No IUGR No Macrosomia No Hypertension/Pre-eclampsia Yes: borderline BP, pre-e labs drawn and WNL Placenta Previa/Abruption No PTL/PROM No Uterine anomaly No Oligohydramnios No Polyhydramnios No Multiple gestation Yes: 7 week loss of twin Past Medical History Asthma No Diabetes No Hypertension No Heart disease No Mitral valve prolapse No Neurologic/Seizure disorder/ No Migraines Kidney disease No Liver disease No Varicosities No Clotting disorders/Hx of DVT No Thyroid Dysfunction No Other medical diseases No Psychiatric disorders Yes: depression Major trauma No Abnormal PAP smear No Sleep apnea No Mammogram in the last 2 years No Social History Marital Status: Alleged father yvonne Hx Smoking No Smoking Status Never smoker How long have you used n/a substances (years)? Expected Infant Delivery Method: Spontaneous Vaginal Review of Systems Constitutional: Denies: Fever, Malaise Eyes: Denies: Blurred vision, Vision Change HEENT: Denies: Head Aches, Visual Changes Cardiovascular: Denies: Chest Pain, Palpitations Respiratory: Denies: Cough, Shortness of Breath, Wheezing Gastrointestinal: Denies: Abdominal Pain, Diarrhea, Nausea, Vomiting Genitourinary: Denies: Dysuria, Hematuria Musculoskeletal: Denies: Joint Pain, Muscle pain Skin: Denies: Lesions, Rash Neurological: Denies: Blurred vision, Focal weakness, Headaches Psychiatric: Denies: Anxiety, Depression Endocrine: Denies: Heat/ Cold Intolerance Hematologic/ Lymphatic: Denies: Easy Bruising, Easy Bleeding Physical Exam Vitals: Vital Signs Temp Pulse BP Pulse Ox 98.4 F 82 130/86 H 96 01/30/20 02:27 01/30/20 02:27 01/30/20 02:27 01/30/20 02:27 General: Alert, Cooperative, No apparent distress HEENT: Atraumatic, Normocephalic. Negative for: Thyromegaly, Lymphadenopathy Cardiovascular: Regular rate Lungs: Normal air movement Abdomen: Soft, Non Tender, Gravid Neurological: Deep Tendon Reflexes 2+/4 and Symmetrical, Neuro grossly intact. Negative for: Clonus PRESCHO[employer] DIRECTOR: Normal external genitalia. Negative for: Vulvar lesions Estimated gestational size: Appropriate for gestational size Presentation: Cephalic Cervix Dilation (cm): 5 Assessment/Plan All Active Problems (Last Reviewed 01/28/20 @ 15:20 by Chapis Hardy) Elevated blood pressure affecting in third trimester, antepartum (Acute) Active labor at term (Acute) GBS (group B Streptococcus carrier), +RV culture, currently (Acute) Twin with loss and retention of one fetus, antepartum (Acute) Supervision of other normal (Acute) (Acute) Consanguinity (Acute) This is a 25 year-old, at 39 weeks gestational age presents IAL 5 cm dilated Patient presents IAL, plan expectant management for , pitocin/AROM if needed. Pain management: plans epidural. GBS positive plan IV PCN. Management of any complications: none I have reviewed the [facility] and made any clinically relevant updates.
[2020-01-30] MEDS: Ondansetron 4 MG/2 ML Vial IV (03:47)
[2020-01-30] MEDS: fentaNYL-bupivacaine (epidural) 100 ML BAG EPIDURAL ×2 (04:08→08:56)
[2020-01-30] MEDS: 0.9% Saline Lock 10 ML Syringe IV (06:03)
[2020-01-30] MEDS: proCHLORPERazine 10 MG/2 ML Vial IV (06:03)
[2020-01-30] MEDS: Lactated Ringers 1,000 ML 200 ML IV (07:57)
[2020-01-30] MEDS: Oxytocin 30 units/NS 500 ml 30 UNITS/500 ML IV.SOLN 334 UNITS IV (09:56)
--- NOTE | 2020-01-30 11:30 | OP.PCM_ITS ---
Problem List (1) Active labor at term Status: Acute (2) GBS (group B Streptococcus carrier), +RV culture, currently Status: Acute (3) Twin with loss and retention of one fetus, antepartum Status: Acute Comment: nonviable twin loss approx 7wk. (4) Supervision of other normal Status: Acute Comment: PRR Grav 2/1 SIDDHARTHA PC Keyonna Spouse Chris- normal anatomy (5) Status: Acute Qualifiers: (6) Consanguinity Status: Acute Comment: patient and are 3rd cousins Vaginal Delivery Maternal Presentation: Active Labor Amniotic Membrane Rupture Type: Artificial Amniotic Fluid Description: Clear Date of Procedure: 01/31/20 Pre-Operative Diagnosis: ial term Post-Operative Diagnosis: same Surgery/ Procedure Performed: Spontaneous Vaginal Delivery Type of Anesthesia: Epidural Description of Procedure: Patient began pushing and delivered the head in the KAT presentation. The head was delivered atraumatically . The anterior and posterior shoulders delivered without complication followed by the rest of the and the infant was placed on the maternal abdomen. Delayed cord clamping was employed for approximately 60 seconds. Cord was clamped and cut and gentle traction was applied to the cord and the placenta delivered spontaneously immediately following it was noted to be intact with three-vessel cord. The perineum and va danielle were inspected and any lacerations repaired. EBL was 200 cc. Patient and tolerated delivery well. Placental Delivery Description: Spontaneous Placenta Disposition: [facility] Select Codes - Urinary/Genital Urinary/Genital CPT Codes: 32432 Vaginal Delivery [facility]
[2020-01-30] MEDS: Naproxen 250 MG Tablet 500 MG PO (19:32)
[2020-01-31 01:40] VITALS: BP 112/76; PULSE 62; RESP 18; TEMP 36.2
[2020-01-31 06:18] VITALS: BP 109/75; PULSE 57; RESP 16; TEMP 36.2
[2020-01-31 07:47] VITALS: BP 106/71; PULSE 57; RESP 16; TEMP 36.4
--- NOTE | 2020-01-31 11:20 | DCINST_ITS ---
Discharge Diet: No Restrictions Discharge Activity: Return to Normal Activity, May not drive while taking narcotic pain medications., May Shower May resume sexual activity in: 4-6 weeks Call your doctor if your incision/area has: Continuous Slow Oozing, Sudden Increased Bleeding, Increased Pain/ Swelling, Increased Redness, Foul Smelling Discharge Additional Instructions: If you experience any of the following, contact your healthcare provider. * Bleeding that soaks a pad every hour for 2 hours * Fever 100.4 or higher * Unrelieved incision or abdominal pain * Swelling, redness, discharge or bleeding from your incision or episiotomy site * Your incision begins to separate * Problems urinating (including inability to urinate or burning while urinating). * Visual changes * Severe headache * Flu-like symptoms * Pain or redness in one of both of your breasts * Pain, warmth, tenderness or swelling in your legs, especially the calf area * Frequent nausea and vomiting * Symptoms of depression or anxiety If you experience any of the following, call 911 or go to the nearest Emergency Room. * Chest pain * Problems breathing * Seizure activity * Partial or complete paralysis of a body part, slurred speech, weakness or drooping of the face, or a sudden inability to walk or hold your balance Allergies/Adverse Reactions: Allergies No Known Allergies Allergy (Verified 01/30/20 02:37) Medications to take at Discharge Sertraline HCl 50 mg PO DAILY 01/30/20 Please Follow Up With: Alize Machuca MD - [phone] When: Call to make an appointment with your doctor in 6 weeks. If you had elevated Blood pressure or 4th degree laceration you will need to be seen in 2 weeks. Primary Care Physician: Musa Torres DO [Primary Care Provider] - Test Results: Test results from this visit will be discussed in further detail at your follow- up appointment, if applicable.
--- NOTE | 2020-01-31 11:20 | PCM.PN.OB ---
Patient Problems: Active and Suspected Problems (Last Reviewed 01/28/20 @ 15:20 by Chapis Hardy) Active labor at term (Acute) Subjective: doing well no complaints pain controlled no CP SOB N V ambulating well tolerating po lochia moderate, going well - Physical Exam Vitals/I&O's: Vital Signs Temp Pulse Resp BP Pulse Ox 97.5 F L 57 L 16 106/71 99 01/31/20 07:47 01/31/20 07:47 01/31/20 07:47 01/31/20 07:47 01/30/20 12:00 Oxygen Delivery Method Room Air Weight: 186 lb Body Mass Index (BMI) 29.9 Intake and Output for Last 24 Hours 01/29/20 01/30/20 01/31/20 23:59 23:59 23:59 Intake Total 2667.50 / 2667.50 Output Total 1000 / 1000 Balance 1667.50 / 1667.50 General: Alert, Oriented x3 Current Medications Acetaminophen (Tylenol) 1,000 mg PO Q8H PRN PRN PRN Reason: Pain Score 1-3/10 Bisacodyl (Dulcolax) 10 mg RECTAL UD PRN PRN Reason: If no BM Dibucaine (Dibucaine) 1 applic TOPICAL TID PRN PRN; Protocol PRN Reason: Discomfort Hydrocortisone (Hytone) 1 applic TOPICAL TID PRN PRN; Protocol PRN Reason: Discomfort Methylergonovine Maleate (Methergine) 0.2 mg IM X1 PRN PRN Reason: Excess bleeding/uterine atony Naproxen (Naprosyn) 500 mg PO Q8H PRN PRN PRN Reason: Pain Score 1-3/10 Last Admin: 01/30/20 19:32 Dose: 500 mg Documented by: Ondansetron HCl (Zofran) 4 mg IV Q4H PRN PRN PRN Reason: Nausea Oxycodone HCl (Oxyir) 5 - 10 mg PO Q4H PRN PRN PRN Reason: Pain Score 4-10/10 Senna/Docusate Sodium (Senokot-S, Yumiko-Colace) 1 - 2 tablet PO DAILY PRN PRN PRN Reason: Constipation Simethicone (Mylicon) 80 mg PO PCHS PRN PRN Reason: Indigestion/Stomach pain Sodium Chloride () 5 - 15 ml IV UD PRN PRN Reason: SALINE FLUSH Medical Necessity - Tobacco Use Smoking Status: Never smoker Assessment/Plan All Active Problems (Last Reviewed 01/28/20 @ 15:20 by Chapis Hardy) Elevated blood pressure affecting in third trimester, antepartum (Acute) Active labor at term (Acute) GBS (group B Streptococcus carrier), +RV culture, currently (Acute) Twin with loss and retention of one fetus, antepartum (Acute) Supervision of other normal (Acute) (Acute) Consanguinity (Acute) s/p PPD # 1 1. routine post delivery care 2. breast feeding- support given 3. rh positive 4. rubella immune
--- NOTE | 2020-01-31 11:20 | PCM.DCVAG ---
Discharge Diet: No Restrictions Discharge Activity: Return to Normal Activity, May not drive while taking narcotic pain medications., May Shower May resume sexual activity in: 4-6 weeks Call your doctor if your incision/area has: Continuous Slow Oozing, Sudden Increased Bleeding, Increased Pain/ Swelling, Increased Redness, Foul Smelling Discharge Additional Instructions: If you experience any of the following, contact your healthcare provider. Bleeding that soaks a pad every hour for 2 hours Fever 100.4 or higher Unrelieved incision or abdominal pain Swelling, redness, discharge or bleeding from your incision or episiotomy site Your incision begins to separate Problems urinating (including inability to urinate or burning while urinating). Visual changes Severe headache Flu-like symptoms Pain or redness in one of both of your breasts Pain, warmth, tenderness or swelling in your legs, especially the calf area Frequent nausea and vomiting Symptoms of depression or anxiety If you experience any of the following, call 911 or go to the nearest Emergency Room. Chest pain Problems breathing Seizure activity Partial or complete paralysis of a body part, slurred speech, weakness or drooping of the face, or a sudden inability to walk or hold your balance Allergies/Adverse Reactions: Allergies No Known Allergies Allergy (Verified 01/30/20 02:37) Medications to take at Discharge Sertraline HCl 50 mg PO DAILY 01/30/20 Please Follow Up With: Alize Machuca MD - [phone] When: Call to make an appointment with your doctor in 6 weeks. If you had elevated Blood pressure or 4th degree laceration you will need to be seen in 2 weeks. Primary Care Physician: Musa Torres DO [Primary Care Provider] - Test Results: Test results from this visit will be discussed in further detail at your follow-up appointment, if applicable.
[2020-01-31 14:01] VITALS: BP 120/88; PULSE 70; RESP 16; TEMP 36.6; O2SAT 98
== END 2020-01-31 15:00 | disposition home or self-care (01) | DRG 807 ==
LOC: WPOUT 02:41 → WP 02:41
PROVIDERS: Admitting Provider Obstetrics & Gynecology; PCP Family Medicine; Visit Provider Obstetrics & Gynecology
DX: O99.824 Streptococcus B carrier state complicating childbirth (principal); Z37.0 Single live birth; Z84.3 Family history of consanguinity; F32.9 Major depressive disorder, single episode, unspecified; O99.344 Other mental disorders complicating childbirth; Z3A.39 39 weeks gestation of pregnancy; O70.1 Second degree perineal laceration during delivery
CPT/HCPCS: 59025; 59050; 85025; 86850; 86900; 86901; 99218; J7120; A4216; G0378; J2405

== ENCOUNTER 2021-12-24 09:49 | Outpatient (CLI) | payer OTHER, SELFPAY ==
[2021-12-24 10:17] LABS: Absolute Lymphocyte Count 1.43 X10^3/uL (0.83-4.51); Absolute Neutrophil Count 5.1 X10^3/uL (2.0-7.7); Basophil# 0.01 X10^3/uL; Basophil% 0.1 % (0-1); Eosinophil# 0.02 X10^3/uL; Eosinophils% 0.3 % (0-5); Hemoglobin 12.7 g/dL (12.0-15.0); Lymphocyte # 1.43 X10^3/ul (0.83-4.51); Lymphocyte % 20.4 % (19-41); Mean Corp Hgb Conc 34.3 g/dL (32-36); Mean Corpuscular Hgb 29.8 pg (27.0-32.0); Mean Corpuscular Volume 86.9 fL (81-99); Mean Platelet Vol. 9.6 fl (6.2-12.0); Monocyte# 0.49 X10^3/uL; NRBC Flagged by Analyzer 0 % (0-5); Neutrophil # 5.05 X10^3/uL (2.7-7.7); Neutrophil % 71.9 % (47-70); Platelet Count 244 K/mm3 (150-450); RBC Distribution Width CV 12.1 % (11.6-14.6); RBC Distribution Width SD 38.5 fl (35.1-43.9); Red Blood Count 4.26 M/mm3 (4.2-5.4)
[2021-12-24 11:03] LABS: Rubella IgG Non-Reactive (Nonreactive)
== END 2021-12-24 23:59 | disposition home or self-care (01) ==
LOC: PAVLAB 09:51
PROVIDERS: PCP Family Medicine; Referring Provider Obstetrics & Gynecology; Visit Provider Obstetrics & Gynecology
DX: Z34.90 Encounter for supervision of normal pregnancy, unspecified, unspecified trimester (principal)
CPT/HCPCS: 36415; 85025; 86762; 86850; 86900; 86901; 87086; 87088

== ENCOUNTER → 2022-01-20 | Outpatient (CLI) | payer SELFPAY, OTHER ==
--- NOTE | 2022-01-20 11:00 | US_ITS ---
STUDY: SECOND AND THIRD TRIMESTER OBSTETRICAL ULTRASOUND REASON FOR EXAM: Female, 27 years old anatomy LMP: 09/09/2021. TECHNIQUE: Transabdominal and Transvaginal TECHNICAL QUALITY: Adequate. PRIOR ULTRASOUND: None. FINDINGS: There is a single intrauterine fetus. The fetus is in a cephalic presentation. There is demonstrated cardiac activity with a heart rate of 153 bpm. There is a normal amniotic fluid volume. The largest amniotic fluid pocket measures 5.1 cm x 4.3 cm. The amniotic fluid index (MAYRA) is within normal limits. The placenta is right lateral with a complete previa. There are Grade 0 placental changes. The cervix measures 4.2 cm in length. The adnexal regions are not visualized. BIOMETRY: BPD: 4.56 cm: 9 weeks, 5 days HC: 17.35 cm: 19 weeks, 6 days AC: 15.22 cm: 20 weeks, 3 days FL: 3 cm: 19 weeks, 1 days CI: 73.9% FL/BPD: 65.8% FL/HC: FL/AC: 19.7% HC/AC: 1.14 age by current US: 19 weeks, 5 days. SIDDHARTHA by current US: 06/11/2022. Estimated weight: 321 grams, +/- 48 grams, 91 %. Age by LMP: 19 weeks, 0 days. SIDDHARTHA by LMP: 06/16/2022. ANATOMY: Gender: Male Cranium: Normal lateral ventricles. Small bilateral choroid plexus cyst. The left measures 8 mm x 3 mm. The right measures 10 mm x 5 mm. Normal cerebellum. Normal cisterna magna. Normal face, nose and lips. Chest: Normal 4-chamber heart. Abdomen/Pelvis: Normal diaphragm. Normal stomach. Normal abdominal wall. Normal cord insertion. Normal 3 vessel cord. Normal kidneys. Normal bladder. Spine: Normal cervical spine. Normal thoracic spine. Normal lumbar spine. Normal sacrum. Extremities: Normal bilateral upper extremities. Normal bilateral lower extremities. IMPRESSION: Single live uterine gestation with a mean gestational age of 19 weeks and 5 days. Small bilateral cysts in the choroid plexus. Electronically Signed: Juvencio Cabrera MD at 14:02 EDT , STUDY: FIRST TRIMESTER OBSTETRICAL ULTRASOUND REASON FOR EXAM: Female, 27 years old . Cervical length measurement. LMP: 09/09/2021. TECHNIQUE: Transabdominal and Transvaginal TECHNICAL QUALITY: Adequate. PRIOR ULTRASOUND: None. FINDINGS: The cervical length measures 4.2 cm. Right lateral complete previa. US/OB Anatomy Scan IMPRESSION: The cervical length measures 4.2 cm. The placenta is right lateral and complete previa. Electronically Signed: Juvencio Cabrera MD at 14:03 EDT ,
== END | disposition home or self-care (01) ==
LOC: US 10:59
PROVIDERS: PCP Family Medicine; Referring Provider Obstetrics & Gynecology; Visit Provider Obstetrics & Gynecology
DX: Z34.90 Encounter for supervision of normal pregnancy, unspecified, unspecified trimester (principal)
CPT/HCPCS: 76805; 76817

== ENCOUNTER → 2022-03-25 | Outpatient (CLI) | payer SELFPAY, OTHER ==
[2022-03-25 08:05] LABS: Absolute Lymphocyte Count 1.77 X10^3/uL (0.83-4.51); Absolute Neutrophil Count 5.3 X10^3/uL (2.0-7.7); Basophil# 0.01 X10^3/uL; Basophil% 0.1 % (0-1); Eosinophil# 0.04 X10^3/uL; Eosinophils% 0.5 % (0-5); Hematocrit 36.6 % (37-47); Hemoglobin 12.5 g/dL (12.0-15.0); Lymphocyte # 1.77 X10^3/ul (0.83-4.51); Lymphocyte % 23.2 % (19-41); Mean Corp Hgb Conc 34.2 g/dL (32-36); Mean Corpuscular Hgb 30.3 pg (27.0-32.0); Mean Corpuscular Volume 88.6 fL (81-99); Mean Platelet Vol. 9.4 fl (6.2-12.0); Monocyte# 0.47 X10^3/uL; Monocyte% 6.2 % (0-10); NRBC Flagged by Analyzer 0 % (0-5); Neutrophil # 5.31 X10^3/uL (2.7-7.7); Neutrophil % 69.5 % (47-70); Platelet Count 223 K/mm3 (150-450); RBC Distribution Width CV 12.4 % (11.6-14.6); RBC Distribution Width SD 39.9 fl (35.1-43.9); Red Blood Count 4.13 M/mm3 (4.2-5.4); White Blood Count 7.6 K/mm3 (4.4-11.0)
[2022-03-25 08:15] LABS: Glucose Challenge Gest 1H 50g 139 mg/dL (70-140)
--- NOTE | 2022-03-25 09:14 | US_ITS ---
STUDY: SECOND AND THIRD TRIMESTER OBSTETRICAL ULTRASOUND - LIMITED REASON FOR EXAM: Female, 27 years old Placenta Previa LMP: 09/04/2022. PRIOR ULTRASOUND: Comparison is made with prior study dated 01/20/2022 TECHNIQUE: Transabdominal and Transvaginal TECHNICAL QUALITY: Adequate. FINDINGS: There is a single intrauterine fetus. The fetus is in a cephalic presentation. There is demonstrated cardiac activity with a heart rate of 158 bpm. There is a normal amniotic fluid volume. The largest amniotic fluid pocket measures 7.7 cm. The amniotic fluid index (MAYRA) is within normal limits. The placenta is right lateral in location and is not low lying. There are Grade 0 placental changes. The cervix measures 3.7 cm in length. BIOMETRY: Age by LMP: 28 weeks, 6 days. SIDDHARTHA by LMP: 06/11/2022. US/OB Limited (No Biometrics) IMPRESSION: No evidence of placenta previa at this time. Electronically Signed: Juvencio Cabrera MD at 14:15 EDT ,
== END | disposition home or self-care (01) ==
PROVIDERS: PCP Family Medicine; Referring Provider Obstetrics & Gynecology; Visit Provider Obstetrics & Gynecology
DX: O44.02 Complete placenta previa NOS or without hemorrhage, second trimester (principal); Z3A.00 Weeks of gestation of pregnancy not specified
CPT/HCPCS: 36415; 76815; 82950; 85025

== ENCOUNTER 2022-04-07 06:38 | Outpatient (CLI) | payer OTHER, SELFPAY ==
[2022-04-07 07:41] LABS: Glucose GTT-Gestation. Fasting 90 mg/dL (<105)
[2022-04-07 08:40] LABS: Glucose GTT-Gestational 1 Hr 189 mg/dL (<190)
[2022-04-07 09:33] LABS: Glucose GTT-Gestational 2 Hr 122 mg/dL (<165)
[2022-04-07 11:36] LABS: Glucose GTT-Gestational 3 Hr 122 L (<145)
== END 2022-04-07 23:59 | disposition home or self-care (01) ==
LOC: LAB 06:39
PROVIDERS: PCP Family Medicine; Visit Provider Obstetrics & Gynecology
DX: O99.810 Abnormal glucose complicating pregnancy (principal); Z3A.00 Weeks of gestation of pregnancy not specified
CPT/HCPCS: 36415; 82951; 82952

== ENCOUNTER → 2022-05-07 | Outpatient (CLI) | payer OTHER, SELFPAY ==
[2022-05-07 09:50] LABS: Absolute Neutrophil Count 6.2 X10^3/uL (2.0-7.7); Basophil# 0.02 X10^3/uL; Basophil% 0.2 % (0-1); Eosinophil# 0.04 X10^3/uL; Eosinophils% 0.5 % (0-5); Hematocrit 35.5 % (37-47); Hemoglobin 12.1 g/dL (12.0-15.0); Lymphocyte % 22.5 % (19-41); Mean Corp Hgb Conc 34.1 g/dL (32-36); Mean Corpuscular Hgb 29.9 pg (27.0-32.0); Mean Corpuscular Volume 87.7 fL (81-99); Mean Platelet Vol. 9.7 fl (6.2-12.0); Monocyte% 6.8 % (0-10); NRBC Flagged by Analyzer 0 % (0-5); Neutrophil # 6.18 X10^3/uL (2.7-7.7); Neutrophil % 69.5 % (47-70); Platelet Count 224 K/mm3 (150-450); RBC Distribution Width CV 11.8 % (11.6-14.6); RBC Distribution Width SD 37.6 fl (35.1-43.9); Red Blood Count 4.05 M/mm3 (4.2-5.4); White Blood Count 8.9 K/mm3 (4.4-11.0)
[2022-05-07 10:07] LABS: Protein, Urine (Random) 25.7 mg/dL (<11.9); Protein:Creat Ratio 169 mg/g CRE (0-200)
[2022-05-07 10:09] LABS: ALB/GLOB Ratio 0.6 RATIO (0.9-2.4); AST(SGOT) 11 U/L (15-37); Alanine Aminotransfer ALT/SGPT 12 U/L (13-56); Albumin, Serum 2.7 g/dL (3.2-5.0); Alkaline Phosphatase 124 U/L (45-117); Anion Gap 7 (5-15); BUN 7 mg/dL (7-18); BUN/Creat Ratio 13.2 RATIO (10-20); Calcium,Total 8.7 mg/dL (8.5-10.1); Chloride 110 mmol/L (98-107); Creatinine, Serum 0.53 mg/dL (0.55-1.02); EST Glomerular Filtration Rate 144 mL/min (>60); Est Glom Filt Rate - Afr Amer 174 mL/min (>60); Globulin 4.2 g/dL (2.2-4.2); Glucose 85 mg/dL (74-106); Potassium 3.9 mmol/L (3.5-5.1); Protein, Total 6.9 g/dL (6.4-8.2); Sodium Level 138 mmol/L (136-145); Uric Acid 3.3 mg/dL (2.6-6.0)
== END | disposition home or self-care (01) ==
LOC: LAB 09:33
PROVIDERS: PCP Family Medicine; Referring Provider Obstetrics & Gynecology; Visit Provider Obstetrics & Gynecology
DX: Z34.90 Encounter for supervision of normal pregnancy, unspecified, unspecified trimester (principal); R03.0 Elevated blood-pressure reading, without diagnosis of hypertension
CPT/HCPCS: 36415; 80053; 82570; 84156; 84550; 85025

== ENCOUNTER → 2022-05-21 | Outpatient (CLI) | payer OTHER, SELFPAY | END | disposition home or self-care (01) | PROVIDERS: PCP Family Medicine; Visit Provider Obstetrics & Gynecology | DX: Z34.93 Encounter for supervision of normal pregnancy, unspecified, third trimester (principal) | CPT/HCPCS: 87081 ==

== ENCOUNTER → 2022-05-26 | Outpatient (CLI) | payer OTHER, SELFPAY ==
[2022-05-26 09:39] LABS: Absolute Lymphocyte Count 2.03 X10^3/uL (0.83-4.51); Basophil# 0.02 X10^3/uL; Basophil% 0.3 % (0-1); Eosinophil# 0.04 X10^3/uL; Eosinophils% 0.5 % (0-5); Hematocrit 36.2 % (37-47); Hemoglobin 11.9 g/dL (12.0-15.0); Lymphocyte # 2.03 X10^3/ul (0.83-4.51); Lymphocyte % 26.2 % (19-41); Mean Corp Hgb Conc 32.9 g/dL (32-36); Mean Corpuscular Hgb 28.6 pg (27.0-32.0); Mean Platelet Vol. 10.2 fl (6.2-12.0); Monocyte# 0.68 X10^3/uL; Monocyte% 8.8 % (0-10); NRBC Flagged by Analyzer 0 % (0-5); Neutrophil # 4.95 X10^3/uL (2.7-7.7); Neutrophil % 63.8 % (47-70); Platelet Count 207 K/mm3 (150-450); RBC Distribution Width SD 38.5 fl (35.1-43.9); Red Blood Count 4.16 M/mm3 (4.2-5.4); White Blood Count 7.8 K/mm3 (4.4-11.0)
[2022-05-26 09:58] LABS: ALB/GLOB Ratio 0.7 RATIO (0.9-2.4); AST(SGOT) 15 U/L (15-37); Alanine Aminotransfer ALT/SGPT 14 U/L (13-56); Albumin, Serum 2.7 g/dL (3.2-5.0); Alkaline Phosphatase 132 U/L (45-117); Anion Gap 6 (5-15); BUN 5 mg/dL (7-18); BUN/Creat Ratio 7.7 RATIO (10-20); Calcium,Total 9.1 mg/dL (8.5-10.1); Chloride 109 mmol/L (98-107); Creatinine, Serum 0.65 mg/dL (0.55-1.02); EST Glomerular Filtration Rate 114 mL/min (>60); Est Glom Filt Rate - Afr Amer 138 mL/min (>60); Globulin 4.1 g/dL (2.2-4.2); Glucose 79 mg/dL (74-106); Potassium 3.8 mmol/L (3.5-5.1); Protein, Total 6.8 g/dL (6.4-8.2); Sodium Level 139 mmol/L (136-145)
[2022-05-26 10:03] LABS: Creatinine, Urine (random) < 13.00 mg/dL (NO RANGE EST.); Protein, Urine (Random) < 6.0 mg/dL (<11.9)
== END | disposition home or self-care (01) ==
LOC: PAVLAB 09:18
PROVIDERS: PCP Family Medicine; Referring Provider Obstetrics & Gynecology; Visit Provider Obstetrics & Gynecology
DX: O16.3 Unspecified maternal hypertension, third trimester (principal); Z3A.00 Weeks of gestation of pregnancy not specified
CPT/HCPCS: 36415; 80053; 82570; 84156; 85025

== ENCOUNTER 2022-06-01 10:25 | Outpatient (CLI) | payer OTHER, SELFPAY ==
[2022-06-01] VITALS (10 sets, daily range): BP systolic 113–128; BP diastolic 69–84; PULSE 76–102; TEMP 36.5
[2022-06-01 11:22] LABS: Hemoglobin 11.9 g/dL (12.0-15.0); Mean Corpuscular Hgb 29.8 pg (27.0-32.0); Mean Corpuscular Volume 87.5 fL (81-99); Mean Platelet Vol. 10.1 fl (6.2-12.0); Platelet Count 206 K/mm3 (150-450); RBC Distribution Width CV 12.1 % (11.6-14.6); RBC Distribution Width SD 38.5 fl (35.1-43.9); White Blood Count 7.9 K/mm3 (4.4-11.0)
[2022-06-01 11:35] LABS: AST(SGOT) 15 U/L (15-37); Alanine Aminotransfer ALT/SGPT 15 U/L (13-56); Creatinine, Serum 0.65 mg/dL (0.55-1.02); EST Glomerular Filtration Rate 115 mL/min (>60); Est Glom Filt Rate - Afr Amer 139 mL/min (>60); Estimated Creatinine Clearance 124.19 ml/min; Uric Acid 4.7 mg/dL (2.6-6.0)
[2022-06-01 12:09] LABS: Protein, Urine (Random) 11.1 mg/dL (<11.9); Protein:Creat Ratio 213 mg/g CRE (0-200)
--- NOTE | 2022-06-01 22:42 | OB.TRI.HP_ITS ---
HPI - General HPI Narrative OTIS BARCENAS, is a 27 y/o @ 37 weeks 6 days who presents to L&D from office due to severe range blood pressures. She states that she has had a mild headache on and off. She denies epigastric pain or visual changes. Maternal Data Information SIDDHARTHA Calculator Estimated Delivery Date Method Current WG Current Estimate 06/16/22 LMP (Certain) 37w 6d PFSH PFS Medical History Consanguinity Home Medications famotidine 20 mg tablet (Pepcid) 20 mg PO DAILY #30 tabs 03/25/22 [Rx Last Taken 05/31/22 13:00] sertraline 50 mg tablet (Zoloft) 12.5 mg PO DAILY 06/01/22 [History Last Taken 05/31/22 09:00] Allergy/AdvReac Type Severity Reaction Status Date / Time No Known Allergies Allergy Verified 06/01/22 09:56 Family History Father Heart disease Social History adopted: No household members: spouse housing: house number of children: 2 current occupational status: unemployed current occupational exposures/hazards: No pets and animals: No history of recent travel: No Smoking Status: Never smoker second hand exposure: No alcohol intake: never what type of physical activity do you participate in: walking and bicycling frequency: 5-6 times per week seatbelt use: always additional social history: louisa History 2 Elective abortions Hx Para 2 Spontaneous abortions Hx # Term Pregnancies Ectopic pregnancies Hx # Pregnancies Multiple births # of living children 2 Past Pregnancies Del. Date Name GA/Weeks Outcome Route Bth Weight Gen Labor Lgth Anesthesia Del Locatn Provider FOB 10/08/17 Keyonna 40 live - full term 7lbs 4 ounces Fe male 12 hours epidural [facility] SM Cole 01/30/20 Barbara 39 live - full term 6lbs 12oz Female 12 hours epidural [facility] PATRIZIA Cole Delivery Date: 10/08/17 Last Updated by: Kylie Levin No issues during or delivery. Delivery Date: 01/30/20 Last Updated by: Kylie Levin Slight elevated blood pressures, no issues with delivery Visit Details Expected Delivery Route/Plan Labor Preferences- CB/BF classes: [] labor support person: [] labor intervention preferences: [] pain management options preferred: [] cut cord/dad catch: [] : [] PP control planned: [] discussed possible routes of delivery and associated risks: [] special requests: [] Plans Covid status: discussed Flu vaccine: discussed Tdap vaccine: Rhogam: na LARC form signed: yes Problem list reviewed and updated with the most current plan of care details and appropriate orders placed. Relevant counseling for the gestational age provided. Continue routine care and follow up unless otherwise noted in visit notes/problem list details OB Flowsheet Initial Weight: 174 lb Date -?-?-?-?-?-?-?-?-?-?-?-?- EGA Weight BP Urine Prot -?-?-?-?-?-?-?-?-?-?-?-?- Glucose FHR FuHt Pres Dilation -?-?-?-?-?-?-?-?-?-?-?-?- Effaced St Visit Note 12/24/21 -?-?-?-?-?-?-?-?-?-?-?-?- 15w 1d 174 lb 6 oz (+6 oz) 131/85 -?-?-?-?-?-?-?-?-?-?-?--?- 155 -?-?-?-?-?-?-?-?-?-?-?-?- SM- HC BPD cons with LMP 01/20/22 -?-?-?-?-?-?-?-?-?-?-?-?- 19w 0d 175 lb (+16 oz) 102/70 Negative -?-?-?-?-?-?-?-?-?-?-?-?- Negative 161 -?-?-?-?-?-?-?-?-?-?-?-?- MH-No Vb, LOF. F eeling movement. anatomy US today 02/24/22 -?-?-?-?-?-?-?-?-?-?-?-?- 24w 0d 179 lb 6 oz (+5 lb 6 oz) 100/80 Negative -?-?-?-?-?-?-?-?-?-?-?-?- Negative 150 -?-?-?-?-?-?-?-?-?-?-?-?- JV- placenta pre via discussed with patient. plan to give s teroids 34 or 35 weeks and section at 36-37 weeks if placenta remains complete. precautions discussed. 03/25/22 -?-?-?-?-?-?-?-?-?-?-?-?- 28w 1d 185 lb (+11 lb) 100/78 Negative -?-?-?-?-?-?-?-?-?-?-?-?- Negative 150 29 -?-?-?-?-?-?-?-?-?-?-?-?- SM- no vb lof go od fm nor egualr ctx co heartburn- ordered pepcid 04/09/22 -?-?-?-?-?-?-?-?-?-?-?-?- 30w 2d 184 lb 6 oz (+10 lb 6 oz) 100/78 Negative -?-?-?-?-?-?-?-?-?-?-?-?- Negative 150 32 -?-?-?-?-?-?-?-?-?-?-?-?- Sm no vb lof goo d fm no regular ctx reflux resolved with pepcid, passed 3 hr gt 04/22/22 -?-?-?-?-?-?-?-?-?-?-?-?- 32w 1d 184 lb 2 oz (+10 lb 2 oz) 100/80 Negative -?-?-?-?-?-?--?-?-?-?-?-?- Negative 151 33 -?-?-?-?-?-?-?-?-?-?-?-?- MH-No VB, LOF. G ood FM. No reg BH. 05/07/22 -?-?-?-?-?-?-?-?-?-?-?-?- 34w 2d 187 lb 8 oz (+13 lb 8 oz) 160/110 110/70 Trace -?-?-?-?-?-?-?-?-?-?-?-?- Negative 155 34 -?-?-?-?-?-?-?-?-?-?-?-?- JV- first bp was elevated and there is trace protein in urine. pt has a h/o PIH> ordering labs and precautions given. return one week for rpt bp 05/13/22 -?-?-?-?-?-?-?-?-?-?-?-?- 35w 1d 188 lb 4 oz (+14 lb 4 oz) 129/93 128/88 Negative -?-?-?-?-?-?-?-?-?-?-?-?- Negative 154 36 -?-?-?-?-?-?-?-?-?-?-?-?- JV-no lof, vagin al bleeding, or dec fm. occasional headache. normal pih labs 05/21/22 -?-?-?-?-?-?-?-?-?-?-?-?- 36w 2d 191 lb (+17 lb) 114/60 Negative -?-?-?-?-?-?-?-?-?-?-?-?- Negative 130 37 Cephalic 2 -?-?-?-?-?-?-?-?-?-?-?-?- 40 -2 SM- no vb lof good fm n oregular ctx gbs done 05/26/22 -?-?-?-?-?-?-?-?-?-?-?-?- 37w 0d 192 lb 8 oz (+18 lb 8 oz) 138/99 124/89 Negative -?-?-?-?-?-?-?-?-?-?-?-?- Negative 134 37 Cephalic -?-?-?-?-?-?-?-?-?-?-?-?- JV- no headaches , blurry vision ,ruq pain but bp is elevated slightly today. sending for PIH labs now and will call with results at end of day ROS Constitutional Constitutional: Reports systems reviewed and no addt'l complaints, except as documented Gastrointestinal Gastrointestinal: Denies bloating, constipation, cramping, diarrhea, nausea or vomiting Genitourinary Genitourinary: Reports other Details: Denies vaginal odor, vaginal bleeding, or vaginal discharge ; Denies difficulty urinating or flank pain Physical Exam HEENT normocephalic Resp normal respiratory effort and normal air movement no CVA tenderness Extremity normal to inspection General Extremity: edema bilateral (trace ) NST FHR Rate Baby A Baseline: 140 Variability:: Moderate Accelerations:: 15 x 15 Decelerations:: None NST Reactive:: Yes FHR Category:: Category I Assessment & Plan (1) History of depression: COMMENT: Considering zoloft start at 36 wk PPD after both pregnancies. PLAN: PIH labs and bp's normal on L&D. no signs or symptoms of PRe-e other than mild headaches during the may discharge to home. return to office in 1 week or sooner as needed (2) Abnormal glucose affecting : COMMENT: Needs 3hr, 04/08/22 passed 3 Hr test with only 1 abnormal reading (3) Rubella non-immune status, antepartum: COMMENT: recommend avoidance, give MMR . (4) Supervision of normal : QUALIFIERS: Normal : other normal Trimester: second trimester Qualified Code(s): Z34.82 - Encounter for supervision of other normal , second trimester COMMENT: PRR(SP labs) SIDDHARTHA 06/16/2022 Barbara Hernandez Cole (5) : QUALIFIERS: Weeks of gestation: 37 weeks Qualified Code(s): Z3A.37 - 37 weeks gestation of COMMENT: GBS neg. declined genetic and carrier screening. declined std screening initially, to be done at delivery. 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 pt discharged to home Charges/Coding Multi Select Codes Visit Charges Office Visit/Consults: 65127 OV L3 Est Urinary/Genital Urinary/Genital CPT Codes: 62140-72 non-stress test Interp
== END 2022-06-01 12:35 | disposition home or self-care (01) ==
LOC: WPOUT 10:30 → WP 10:31
PROVIDERS: PCP Family Medicine; Referring Provider Obstetrics & Gynecology; Visit Provider Obstetrics & Gynecology
DX: O16.3 Unspecified maternal hypertension, third trimester (principal); Z3A.37 37 weeks gestation of pregnancy; Z84.3 Family history of consanguinity; O99.810 Abnormal glucose complicating pregnancy
CPT/HCPCS: 36415; 59025; 59050; 82565; 82570; 84156; 84450; 84460; 84550; 85027; 99218; G0378

== ENCOUNTER 2022-06-14 02:00 | Inpatient (IN) | payer SELFPAY, OTHER ==
[2022-06-14] VITALS (54 sets, daily range): BP systolic 101–158; BP diastolic 56–97; PULSE 72–148; RESP 16–18; TEMP 36.4–37; O2SAT 79–100; BMI 30.1
[2022-06-14] MEDS: LACTATED RINGERS 500 ML 999 ML IV (02:16)
[2022-06-14 02:27] LABS: Absolute Lymphocyte Count 2.54 X10^3/uL (0.83-4.51); Absolute Neutrophil Count 5.7 X10^3/uL (2.0-7.7); Basophil# 0.02 X10^3/uL; Basophil% 0.2 % (0-1); Eosinophil# 0.05 X10^3/uL; Eosinophils% 0.6 % (0-5); Hematocrit 35.5 % (37-47); Hemoglobin 11.9 g/dL (12.0-15.0); Lymphocyte # 2.54 X10^3/ul (0.83-4.51); Lymphocyte % 28.2 % (19-41); Mean Corp Hgb Conc 33.5 g/dL (32-36); Mean Corpuscular Hgb 28.9 pg (27.0-32.0); Mean Corpuscular Volume 86.2 fL (81-99); Mean Platelet Vol. 10.5 fl (6.2-12.0); Monocyte% 7.8 % (0-10); NRBC Flagged by Analyzer 0 % (0-5); Neutrophil # 5.66 X10^3/uL (2.7-7.7); Neutrophil % 62.8 % (47-70); Platelet Count 218 K/mm3 (150-450); RBC Distribution Width CV 12.7 % (11.6-14.6); RBC Distribution Width SD 38.9 fl (35.1-43.9); Red Blood Count 4.12 M/mm3 (4.2-5.4)
[2022-06-14] MEDS: Lactated Ringers 1,000 ML 200 ML IV (02:47)
[2022-06-14 02:56] LABS: Mucous, Urine 0 SEEN /hpf (<or=2+); Red Blood Cells-Urine 0 SEEN /hpf (0-5)
[2022-06-14 03:03] LABS: Glucose, Dipstick Normal (Normal); Ketone-Dipstick 5 mg/dl (Negative); Leukocyte Esterase-Dipstick 100 /ul (Negative); Nitrite-Dipstick Negative (Negative); Occult Blood-Urine 10 /ul (Negative); Protein-Dipstick 15 mg/dl (Negative); Urine Bilirubin Dipstick Negative (Negative); Urine Urobilinogen 1 mg/dl (Normal)
[2022-06-14 03:09] LABS: ALB/GLOB Ratio 0.7 RATIO (0.9-2.4); AST(SGOT) 11 U/L (15-37); Alanine Aminotransfer ALT/SGPT 12 U/L (13-56); Albumin, Serum 2.3 g/dL (3.2-5.0); Alkaline Phosphatase 126 U/L (45-117); Anion Gap 12 (5-15); BUN 9 mg/dL (7-18); BUN/Creat Ratio 15.4 RATIO (10-20); Calcium,Total 9.1 mg/dL (8.5-10.1); Chloride 108 mmol/L (98-107); Creatinine, Serum 0.58 mg/dL (0.55-1.02); EST Glomerular Filtration Rate 129 mL/min (>60); Est Glom Filt Rate - Afr Amer 156 mL/min (>60); Estimated Creatinine Clearance 139.18 ml/min; Globulin 3.5 g/dL (2.2-4.2); Glucose 82 mg/dL (74-106); Potassium 3.8 mmol/L (3.5-5.1); Protein, Total 5.8 g/dL (6.4-8.2); Sodium Level 139 mmol/L (136-145)
[2022-06-14] MEDS: fentaNYL-bupivacaine (epidural) 100 ML BAG EPIDURAL (03:09)
[2022-06-14 03:20] LABS: Color, Urine Yellow (Yellow); Squamous Epithelial Cells - UA 5-10 SEEN /hpf (5-10); Urine Clarity Sl Cldy (Clear); White Blood Cells 0-5 SEEN /hpf (0-5)
[2022-06-14 03:21] LABS: Bacteria 1+ /hpf (None Seen)
[2022-06-14 04:40] LABS: Chlamydia Trachomatis by PCR Negative (Negative); Neisserai gonorrhoeae by PCR Negative (Negative); Probe Check PASS; Sample Adequacy Control PASS; Specimen Processing Control PASS
[2022-06-14] MEDS: Oxytocin 30 units/NS 500 ml 30 UNITS/500 ML IV.SOLN 334 UNITS IV (04:44)
[2022-06-14 04:58] LABS: HIV - WCH Non-Reactive (Nonreactive); Hepatitis B Surface Antigen Non-Reactive (Nonreactive); Hepatitis C Antibody Non-Reactive (Nonreactive)
--- NOTE | 2022-06-14 05:34 | OP.PCM_ITS ---
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 consider zoloft . (3) Rubella non-immune status, antepartum: COMMENT: recommend avoidance, give MMR . (4) Abnormal glucose affecting : COMMENT: passed 3 Hr test with only 1 abnormal reading (5) Supervision of normal : QUALIFIERS: Normal : other normal Trimester: second trimester Qualified Code(s): Z34.82 - Encounter for supervision of other normal , second trimester COMMENT: PRR(SP labs) SIDDHARTHA 06/16/2022 boy (name surprise) Barbara Hernandez Cole (6) : QUALIFIERS: Weeks of gestation: 38 weeks Qualified Code(s): Z3A.38 - 38 weeks gestation of COMMENT: GBS neg. declined genetic and carrier screening. declined std screening initially, to be done at delivery. anatomy US shows choroid plexus cyst (7) Vaginal delivery: COMMENT: SM boy Tim 39 Maternal Data Information SIDDHARTHA Calculator Estimated Delivery Date Method Current WG Current Estimate 06/16/22 LMP (Certain) 39w 5d Vaginal Delivery Operative Information Date of Procedure: 06/14/22 Pre-Operative Diagnosis: IAL Post-Operative Diagnosis: same Surgery / Procedure Performed: Spontaneous Vaginal Delivery Type of Anesthesia: Epidural Special Medications: none Estimated Blood Loss: 200 Fluids Replaced: crystalloid Findings Description of Procedure: Patient began pushing and delivered the head in the [KAT] presentation. The head was delivered atraumatically. The anterior and posterior shoulders delivered without complication followed by the rest of the infant and the was placed on the maternal abdomen. Delayed cord clamping was employed for approximately 60 seconds. Cord was clamped and cut and gentle traction was applied to the cord and the placenta delivered spontaneously immediately following it was noted to be intact with three-vessel cord but some of the membranes were noted to be retained. Exploration of the lining of the uterus was performed both manually and with a banjo curette to remove all remaining membranes without complication.. The perineum and vagina were inspected and have a first-degree perineal laceration that was repaired in the usual fashion with 3-0 Vicryl repeat.. EBL was 200. Patient and infant tolerated delivery well. Presentation: KAT Amniotic Membrane Rupture Type: Artificial Amniotic Fluid Description: Clear Placental Delivery Description: Spontaneous Placenta Disposition: [facility] Cord Vessel Description: 3 Vessels Cord Entanglement: None Infant A Gender: Male Delayed Cord Clamping: Yes Post Vaginal Delivery Medications Given After Delivery: IV Pitocin Episiotomy Description: None Laceration: Perineal Extension/lac and 1st degree Complication Complications: None Procedures Urinary/Genital [id number]: [id number] Vaginal Delivery [facility]
--- NOTE | 2022-06-14 05:36 | HP.PCM.OB_ITS ---
HPI - General General Date of Admission: 06/14/22 HPI Narrative OTIS BARCENAS, is a 27 F who presents IAL 6 cm dilated no vb lof good fm Maternal Data Information SIDDHARTHA Calculator Estimated Delivery Date Method Current WG Current Estimate 06/16/22 LMP (Certain) 39w 5d PFSH PFS Medical History (Updated 06/14/22 @ 05:[address] Alize Machuca MD) Consanguinity depression Home Medications famotidine 20 mg tablet (Pepcid) 20 mg PO DAILY heart burn 06/14/22 [History Last Taken 06/13/22] Allergy/AdvReac Type Severity Reaction Status Date / Time No Known Allergies Allergy Verified 06/14/22 02:14 Family History Father Heart disease Social History adopted: No household members: spouse housing: house number of children: 2 current occupational status: unemployed current occupational exposures/hazards: No pets and animals: No history of recent travel: No Smoking Status: Never smoker second hand exposure: No alcohol intake: never what type of physical activity do you participate in: walking and bicycling frequency: 5-6 times per week seatbelt use: always additional social history: louisa History 2 Elective abortions Hx Para 2 Spontaneous abortions Hx # Term Pregnancies Ectopic pregnancies Hx # Pregnancies Multiple births # of living children 2 Past Pregnancies Del. Date Name GA/Weeks Outcome Route Bth Weight Gen Labor Lgth Anesthesia Del Locatn Provider FOB 10/08/17 Keyonna 40 live - full term 7lbs 4 ounces Fe male 12 hours epidural [facility] Cole 01/30/20 Barbara 39 live - full term 6lbs 12oz Female 12 hours epidural [facility] Cole Delivery Date: 10/08/17 Last Updated by: Kylie Levin No issues during or delivery. Delivery Date: 01/30/20 Last Updated by: Kylie Levin Slight elevated blood pressures, no issues with delivery Visit Details Expected Delivery Route/Plan Labor Preferences- CB/BF classes: [] labor support person: [] labor intervention preferences: [] pain management options preferred: [] cut cord/dad catch: [] : [] PP control planned: [] discussed possible routes of delivery and associated risks: [] special requests: [] Plans Covid status: discussed Flu vaccine: discussed Tdap vaccine: Rhogam: na LARC form signed: yes Problem list reviewed and updated with the most current plan of care details and appropriate orders placed. Relevant counseling for the gestational age provided. Continue routine care and follow up unless otherwise noted in visit notes/problem list details OB Flowsheet Initial Weight: 174 lb Date -?-?-?-?-?-?-?-?-?-?-?-?- EGA Weight BP Urine Prot -?-?-?-?-?-?-?-?-?-?-?-?- Glucose FHR FuHt Pres Dilation -?-?-?-?-?-?-?-?-?-?-?-?- Effaced St Visit Note 12/24/21 -?-?-?-?-?-?-?-?-?-?-?-?- 15w 1d 174 lb 6 oz (+6 oz) 131/85 -?-?-?-?-?-?-?-?-?-?-?-?- 155 -?-?-?-?-?-?-?-?-?-?-?-?- SM- HC BPD cons with LMP 01/20/22 -?-?-?-?-?-?-?-?-?-?-?-?- 19w 0d 175 lb (+16 oz) 102/70 Negative -?-?-?-?-?-?-?-?-?-?-?-?- Negative 161 -?-?-?-?-?-?-?-?-?-?-?-?- MH-No Vb, LOF. F eeling movement. anatomy US today 02/24/22 -?-?-?-?-?-?-?-?-?-?-?-?- 24w 0d 179 lb 6 oz (+5 lb 6 oz) 100/80 Negative -?-?-?-?-?-?-?-?-?-?-?-?- Negative 150 -?-?-?-?-?-?-?-?-?-?-?-?- JV- placenta pre via discussed with patient. plan to give s teroids 34 or 35 weeks and section at 36-37 weeks if placenta remains complete. precautions discussed. 03/25/22 -?-?-?-?-?-?-?-?-?-?-?-?- 28w 1d 185 lb (+11 lb) 100/78 Negative -?-?-?-?-?-?-?-?-?-?-?-?- Negative 150 29 -?-?-?-?-?-?-?-?-?-?-?-?- SM- no vb lof go od fm nor egualr ctx co heartburn- ordered pepcid 04/09/22 -?-?-?-?-?-?-?-?-?-?-?-?- 30w 2d 184 lb 6 oz (+10 lb 6 oz) 100/78 Negative -?-?-?-?-?-?-?-?-?-?-?-?- Negative 150 32 -?-?-?-?-?-?-?-?-?-?-?-?- Sm no vb lof goo d fm no regular ctx reflux resolved with pepcid, passed 3 hr gt 04/22/22 -?-?-?-?-?-?-?-?-?-?-?-?- 32w 1d 184 lb 2 oz (+10 lb 2 oz) 100/80 Negative -?-?-?-?-?-?-?-?-?-?-?-?- Negative 151 33 -?-?-?-?-?-?-?-?-?-?-?-?- MH-No VB, LOF. G ood FM. No reg BH. 05/07/22 -?-?-?-?-?-?-?-?-?-?-?-?- 34w 2d 187 lb 8 oz (+13 lb 8 oz) 160/110 110/70 Trace -?-?-?-?-?-?-?-?-?-?-?-?- Negative 155 34 -?-?-?-?-?-?-?-?-?-?-?-?- JV- first bp was elevated and there is trace protein in urine. pt has a h/o PIH> ordering labs and precautions given. return one week for rpt bp 05/13/22 -?-?-?-?-?-?-?-?-?-?-?-?- 35w 1d 188 lb 4 oz (+14 lb 4 oz) 129/93 128/88 Negative -?-?-?-?-?-?-?-?-?-?-?-?- Negative 154 36 -?-?-?-?-?-?-?-?-?-?-?-?- JV-no lof, vagin al bleeding, or dec fm. occasional headache. normal pih labs 05/21/22 -?-?-?-?-?-?-?-?-?-?-?-?- 36w 2d 191 lb (+17 lb) 114/60 Negative -?-?-?-?-?-?-?-?-?-?-?-?- Negative 130 37 Cephalic 2 -?-?-?-?-?-?-?-?-?-?-?-?- 40 -2 SM- no vb lof good fm n oregular ctx gbs done 05/26/22 -?-?-?-?-?-?-?-?-?-?-?-?- 37w 0d 192 lb 8 oz (+18 lb 8 oz) 138/99 124/89 Negative -?-?-?-?-?-?-?-?-?-?-?-?- Negative 134 37 Cephalic -?-?-?-?-?-?-?-?-?-?-?-?- JV- no headaches , blurry vision ,ruq pain but bp is elevated slightly today. sending for PIH labs now and will call with results at end of day 06/08/22 -?-?-?-?-?-?-?-?-?-?-?-?- 38w 6d 192 lb (+18 lb) 132/86 -?-?-?-?-?-?-?-?-?-?-?-?- 130 39 Cephalic 3 -?-?-?-?-?-?-?-?-?-?-?-?- 60 -2 SM- no vb lof good fm no reuglar ctx membranes swept 06/14/22 -?-?-?-?-?-?-?-?--?-?-?-?- 39w 5d 192 lb 3.889 oz (+18 lb 3.889 oz) 136/97 128/83 122/84 125/84 129/92 158/70 120/80 134/62 101/59 127/68 122/72 142/70 137/63 122/62 118/75 114/91 15 mg/dl (Negative) H -?-?-?-?-?-?-?-?-?-?-?-?- -?-?-?-?-?-?-?-?-?-?-?-?- NST FHR Rate Baby A Baseline: 140 Variability:: Moderate Accelerations:: 15 x 15 Decelerations:: None NST Reactive:: Yes FHR Category:: Category I Uterine Activity:: q3-5 ROS Constitutional Constitutional: Reports systems reviewed and no addt'l complaints, except as documented ENT HEENT: Reports systems reviewed and no addt'l complaints, except as documented Cardiovascular Cardiovascular: Reports systems reviewed and no addt'l complaints, except as documented Respiratory/Chest Respiratory/Chest: Reports systems reviewed and no addt'l complaints, except as documented Gastrointestinal Gastrointestinal: Reports systems reviewed and no addt'l complaints, except as documented and nausea; Denies abdominal pain Genitourinary Genitourinary: Reports systems reviewed and no addt'l complaints, except as documented, contractions Details: present and frequency (regular ) and movement Details: present Musculoskeletal Musculoskeletal: Reports systems reviewed and no addt'l complaints, except as documented Integumentary Integumentary: Reports as per HPI Neurologic Neurologic: Reports systems reviewed and no addt'l complaints, except as documented Endocrine Endocrinology: Reports systems reviewed and no addt'l complaints, except as documented Vital Signs Vital Signs Vital Signs: 06/14/22 01:55 06/14/22 01:55 06/14/22 01:55 Temperature Temperature Source Pulse Rate 86 Blood Pressure 136/97 H BP Systolic 136 BP Diastolic 97 Pulse Ox 87 06/14/22 01:53 06/14/22 01:53 06/14/22 02:31 Temperature 97.7 F L Temperature Source Temporal Pulse Rate 84 Blood Pressure BP Systolic BP Diastolic Pulse Ox 06/14/22 02:31 06/14/22 02:45 06/14/22 02:45 Temperature Temperature Source Pulse Rate 78 Blood Pressure BP Systolic BP Diastolic Pulse Ox 100 98 06/14/22 02:51 06/14/22 02:51 06/14/22 02:50 Temperature Temperature Source Pulse Rate 84 Blood Pressure 128/83 H BP Systolic 128 BP Diastolic 83 Pulse Ox 99 06/14/22 02:55 06/14/22 02:55 06/14/22 02:55 Temperature Temperature Source Pulse Rate 95 Blood Pressure 122/84 H BP Systolic 122 BP Diastolic 84 Pulse Ox 99 06/14/22 02:59 06/14/22 02:59 06/14/22 03:00 Temperature Temperature Source Temporal Pulse Rate 87 Blood Pressure 125/84 H BP Systolic 125 BP Diastolic 84 Pulse Ox 06/14/22 03:00 06/14/22 03:00 06/14/22 03:00 Temperature 97.5 F L Temperature Source Pulse Rate 96 Blood Pressure BP Systolic BP Diastolic Pulse Ox 99 06/14/22 03:04 06/14/22 03:04 06/14/22 03:05 Temperature Temperature Source Pulse Rate 85 74 Blood Pressure 129/92 H BP Systolic 129 BP Diastolic 92 Pulse Ox 06/14/22 03:05 06/14/22 03:10 06/14/22 03:10 Temperature Temperature Source Pulse Rate 86 Blood Pressure 158/70 H BP Systolic 158 BP Diastolic 70 Pulse Ox 99 06/14/22 03:10 06/14/22 03:10 06/14/22 03:15 Temperature Temperature Source Pulse Rate 78 77 Blood Pressure BP Systolic BP Diastolic Pulse Ox 99 06/14/22 03:15 06/14/22 03:19 06/14/22 03:19 Temperature Temperature Source Pulse Rate 79 Blood Pressure 120/80 BP Systolic 120 BP Diastolic 80 Pulse Ox 99 06/14/22 03:20 06/14/22 03:20 06/14/22 03:25 Temperature Temperature Source Pulse Rate 76 79 Blood Pressure BP Systolic BP Diastolic Pulse Ox 100 06/14/22 03:25 06/14/22 03:27 06/14/22 03:27 Temperature Temperature Source Pulse Rate 83 Blood Pressure 134/62 H BP Systolic 134 BP Diastolic 62 Pulse Ox 100 06/14/22 03:30 06/14/22 03:30 06/14/22 03:33 Temperature Temperature Source Pulse Rate 84 Blood Pressure 101/59 L BP Systolic 101 BP Diastolic 59 Pulse Ox 99 06/14/22 03:33 06/14/22 03:35 06/14/22 03:35 Temperature Temperature Source Pulse Rate 77 77 Blood Pressure BP Systolic BP Diastolic Pulse Ox 99 06/14/22 03:40 06/14/22 03:40 06/14/22 03:45 Temperature Temperature Source Pulse Rate 83 80 Blood Pressure BP Systolic BP Diastolic Pulse Ox 100 06/14/22 03:45 06/14/22 03:52 06/14/22 03:52 Temperature 97.6 F L Temperature Source Temporal Pulse Rate Blood Pressure BP Systolic BP Diastolic Pulse Ox 100 06/14/22 04:00 06/14/22 04:00 06/14/22 04:03 Temperature Temperature Source Pulse Rate 90 Blood Pressure 127/68 H BP Systolic 127 BP Diastolic 68 Pulse Ox 99 06/14/22 04:03 06/14/22 04:05 06/14/22 04:05 Temperature Temperature Source Pulse Rate 88 80 Blood Pressure BP Systolic BP Diastolic Pulse Ox 99 06/14/22 04:10 06/14/22 04:10 06/14/22 04:14 Temperature Temperature Source Pulse Rate 85 Blood Pressure 122/72 H BP Systolic 122 BP Diastolic 72 Pulse Ox 99 06/14/22 04:14 06/14/22 04:15 06/14/22 04:15 Temperature Temperature Source Pulse Rate 83 93 Blood Pressure BP Systolic BP Diastolic Pulse Ox 100 06/14/22 04:19 06/14/22 04:19 06/14/22 04:20 Temperature Temperature Source Pulse Rate 103 H 108 H Blood Pressure BP Systolic BP Diastolic Pulse Ox 92 06/14/22 04:20 06/14/22 04:27 06/14/22 04:27 Temperature Temperature Source Pulse Rate 148 H Blood Pressure BP Systolic BP Diastolic Pulse Ox 96 79 06/14/22 04:27 06/14/22 04:42 06/14/22 04:42 Temperature Temperature Source Pulse Rate 116 H Blood Pressure 142/70 H BP Systolic 142 BP Diastolic 70 Pulse Ox 99 06/14/22 04:51 06/14/22 04:51 06/14/22 04:56 Temperature Temperature Source Pulse Rate 94 Blood Pressure 137/63 H BP Systolic 137 BP Diastolic 63 Pulse Ox 97 06/14/22 04:59 06/14/22 04:59 06/14/22 04:56 Temperature Temperature Source Temporal Pulse Rate 100 Blood Pressure 122/62 H BP Systolic 122 BP Diastolic 62 Pulse Ox 06/14/22 04:56 06/14/22 05:14 06/14/22 05:14 Temperature 98.5 F Temperature Source Pulse Rate 87 Blood Pressure 118/75 BP Systolic 118 BP Diastolic 75 Pulse Ox 06/14/22 05:29 06/14/22 05:29 Temperature Temperature Source Pulse Rate 86 Blood Pressure 114/91 H BP Systolic 114 BP Diastolic 91 Pulse Ox Weight Weight: 192 lb 3.889 oz Body Mass Index (BMI) 30.1 Physical Exam Const alert, oriented x3 and healthy appearing Constitutional Narrative: uncomfortable with contractions HEENT normocephalic and moist oral mucous membranes Head and Scalp: atraumatic Neck full ROM, no lymphadenopathy, supple and thyroid normal General: trachea midline Thyroid: thyroid normal Lymph Lymphatic: no lymphadenopathy noted Chest inspection of chest normal Resp normal respiratory effort Cardio regular rate GI normal to inspection, nondistended, normoactive bowel sounds, soft to palpation and non-tender Inspection: gravid external exam normal Bimanual Exam - Vag & Uterus: uterus non-tender Manual OB Exam: estimated gestational size appropriate, presentation cephalic, dilated, effaced and station Extremity normal to inspection General Extremity: Negative for edema Skin no rashes or lesions noted Neuro deep tendon reflexes 2+ bilaterally Motor Exam: strength 5/5 throughout and clonus absent Psych mental status grossly normal Labs Labs Labs: Blood Type O POSITIVE Antibody Screen NEGATIVE Hct 35.5 % (37-47) L Hgb 11.9 g/dL (12.0-15.0) L Obstetrics US Syphilis Total Ab Pending Rubella IgG Antibody Non-Reactive (Nonreactive) Hep Bs Antigen Non-Reactive (Nonreactive) HIV 1&2 Antibody Non-Reactive (Nonreactive) Glucose 1 Hr 50 gm 139 mg/dL (70-140) Group B Strep DNA POSITIVE (Negative) H Rhogam given: No Assessment & Plan (1) Supervision of normal : QUALIFIERS: Normal : other normal Trimester: second trimester Qualified Code(s): Z34.82 - Encounter for supervision of other normal , second trimester COMMENT: PRR(SP labs) SIDDHARTHA 06/16/2024 boy (name surprise) ROM Newby Barbara Cole (2) : QUALIFIERS: Weeks of gestation: 38 weeks Qualified Code(s): Z3A.38 - 38 weeks gestation of COMMENT: GBS neg. declined genetic and carrier screening. declined std screening initially, to be done at delivery. 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 consider zoloft . PLAN: Plan admit IAL epi now and arom after epi
--- NOTE | 2022-06-14 05:40 | DCINST_ITS ---
Discharge Instructions Diet Discharge Diet: No restrictions Activity Discharge Activity: Return to Normal Activity, May Drive, May Shower and May Take a Tub Bath (in 4 weeks) May resume sexual activity in: 6-8 weeks (after seen by OB provider) Weight Bearing Status: Full weight bearing Lifting Restrictions: none Dressing / Incision Call your doctor if you observe: Fever of 101 or Higher, Inability to urinate, Using more than 1 pad per hour (for more than 2 hours in a row or more), Shortness of breath, Dizziness, Chest pain and - (headache not controlled with tylenol, change in vision) Follow Up Care When: in 6 weeks for visit, call the office to make the appointment. If you had elevated blood pressures call the office to be seen within 1 week. Test Results: Test results from this visit will be discussed in further detail at your follow- up appointment, if applicable. Discharge Plan Admission Admit Date/Time: 06/14/22 02:00 Attending Provider: Alize Machuca Primary Care Provider: Musa Torres Discharge Orders/Prescriptions Prescriptions: No Action famotidine [Pepcid] 20 mg tablet 20 mg PO DAILY Referrals / Follow Up: Musa Torres DO [Primary Care Provider] - Disposition Disposition (needs filled in before D/C Order can be placed): Home, Self Care
[2022-06-14 09:05] LABS: Syphilis Antibodies Non-reactive
[2022-06-14] MEDS: Cefazolin 2 GM in 0.9% Normal Saline 100 ML IV (09:41)
[2022-06-14] MEDS: 0.9% Saline Lock 10 ML Syringe IV (09:42)
[2022-06-14] MEDS: Acetaminophen 500 MG Tablet 1000 MG PO ×2 (09:50→19:32)
[2022-06-14] MEDS: Senna/Docusate Sodium 1 Tablet PO (09:51)
[2022-06-15 00:13] VITALS: BP 115/69; PULSE 74; RESP 14; TEMP 36.6
[2022-06-15] MEDS: Acetaminophen 500 MG Tablet 1000 MG PO ×2 (01:56→09:25)
[2022-06-15] MEDS: FLU VACC QS2022-23(6MOS UP)/PF 60 MCG/0.5 ML SYRINGE IM (01:56)
[2022-06-15 05:02] VITALS: BP 114/74; PULSE 76; RESP 18; TEMP 36
--- NOTE | 2022-06-15 07:59 | PCM.PN.OB ---
Subjective Subjective Patient doing well without complaints. Tolerating PO. Ambulating and voiding without difficulty. Feeding well. Denies chest pain, shortness of breath, calf pain/swelling, fevers, chills, lightheadedness. Objective Data Objective Data Vital Signs: Vital Signs Temp Pulse Resp BP Pulse Ox O2 Del Method 96.8 F L 76 18 114/74 97 Room Air 06/15/22 05:02 06/15/22 05:02 06/15/22 05:02 06/15/22 05:02 06/14/22 04:51 06/15/22 05:02 Oxygen Delivery Method Room Air Weight: 192 lb 3.889 oz Body Mass Index (BMI) 30.1 Intake & Output: Intake and Output for Last 24 Hours 06/13/22 06/14/22 06/15/22 23:59 23:59 23:59 Intake Total 1490.00 / 1490.00 Output Total 450 / 450 Balance 1040.00 / 1040.00 Lab / Micro Data Result Diagrams: 06/14/22 02:15 06/14/22 02:35 Labs: Laboratory Results - last 24 hr 06/14/22 02:35: Syphilis Total Ab Non-reactive Micro: Microbiology 06/14/22 02:45 Nasal Secretion SARS-CoV-2 Antigen (Rapid) - Final Physical Exam Const alert and oriented x3 HEENT normocephalic Eyes PERRL Neck full ROM Resp normal respiratory effort GI soft to palpation GI Narrative: FF below U Assessment & Plan (1) Vaginal delivery: COMMENT: SM boy Tim 39 (2) Rubella non-immune status, antepartum: COMMENT: recommend avoidance, give MMR . PLAN: Plan s/p PPD # 1 1. routine post delivery care 2. breast feeding- support given 3. rh positive 4. rubella nonimmune 5. home today
[2022-06-15 08:28] VITALS: BP 152/80; PULSE 87
[2022-06-15 08:30] VITALS: BP 122/57; PULSE 78
[2022-06-15 08:57] VITALS: BP 122/57; PULSE 78; RESP 16; TEMP 36.1
[2022-06-15] MEDS: Senna/Docusate Sodium 1 Tablet PO (09:26)
== END 2022-06-15 10:40 | disposition home or self-care (01) | DRG 806 ==
LOC: WPOUT 02:01 → WP 02:01
PROVIDERS: Admitting Provider Obstetrics & Gynecology; PCP Family Medicine; Visit Provider Obstetrics & Gynecology
DX: O70.0 First degree perineal laceration during delivery (principal); Z37.0 Single live birth; O72.2 Delayed and secondary postpartum hemorrhage; Z3A.38 38 weeks gestation of pregnancy; Z23 Encounter for immunization
CPT/HCPCS: 59025; 59050; 80053; 81001; 85025; 86703; 86780; 86803; 86850; 86900; 86901; 87340; 87426; 87491; 87591; 99218; J7120; 90686; A4216; G0378

== ENCOUNTER → 2022-06-24 | Outpatient (CLI) | payer SELFPAY, OTHER ==
--- NOTE | 2022-06-24 12:25 | US_ITS ---
STUDY: ULTRASOUND OF THE FEMALE PELVIS - COMPLETE REASON FOR EXAM: Female, 27 years old. pelvic pain LMP: TECHNIQUE: Standard TECHNICAL QUALITY: Adequate. COMPARISON: None. FINDINGS: The uterus is anteverted and is in a midline position. The uterus measures 12.4 x 9.9 x 6.9 cm. Normal uterine cervix. The endometrium measures 16 mm in thickness, and is heterogeneous.. The endometrium demonstrates varying echogenicity throughout. There are anechoic and hyperechoic foci seen within the endometrium. There is no demonstrated endometrial mass. There is no demonstrated myometrial mass. I.U.D. - The patient does not have an I.U.D. The right ovary is visualized. The right ovary measures 3.6 x 1.8 x 1.5 cm. There is no right ovarian cyst or ovarian mass. There is no visualized right adnexal mass or complex lesion. There is normal arterial and normal venous vascularity. The left ovary is visualized. The left ovary measures 2.6 x 2.6 x 2.2 cm. There is no left ovarian cyst or ovarian mass. There is no visualized left adnexal mass or complex lesion. There is normal arterial and normal venous vascularity. There is no fluid in the cul-de-sac. Polycystic ovary disease: No. US/Pelvic (Non ) IMPRESSION: Thickened endometrium which is inhomogeneous. This measures 16 mm in thickness. Findings are consistent with hemorrhage versus retained products. Electronically Signed: Naga Ramirez MD, ARIANA at 16:50 EDT ,
[2022-06-24 13:13] LABS: Absolute Lymphocyte Count 2.24 X10^3/uL (0.83-4.51); Absolute Neutrophil Count 4.3 X10^3/uL (2.0-7.7); Basophil# 0.02 X10^3/uL; Basophil% 0.3 % (0-1); Eosinophils% 1.4 % (0-5); Hematocrit 38.5 % (37-47); Hemoglobin 12.5 g/dL (12.0-15.0); Lymphocyte # 2.24 X10^3/ul (0.83-4.51); Lymphocyte % 31.2 % (19-41); Mean Corp Hgb Conc 32.5 g/dL (32-36); Mean Corpuscular Hgb 28.5 pg (27.0-32.0); Mean Corpuscular Volume 87.9 fL (81-99); Mean Platelet Vol. 9.1 fl (6.2-12.0); Monocyte# 0.55 X10^3/uL; Monocyte% 7.6 % (0-10); NRBC Flagged by Analyzer 0 % (0-5); Neutrophil # 4.26 X10^3/uL (2.7-7.7); Neutrophil % 59.2 % (47-70); Platelet Count 312 K/mm3 (150-450); RBC Distribution Width CV 12.8 % (11.6-14.6); RBC Distribution Width SD 41.4 fl (35.1-43.9); Red Blood Count 4.38 M/mm3 (4.2-5.4); White Blood Count 7.2 K/mm3 (4.4-11.0)
== END | disposition home or self-care (01) ==
PROVIDERS: PCP Family Medicine; Referring Provider Obstetrics & Gynecology; Visit Provider Obstetrics & Gynecology
DX: R10.2 Pelvic and perineal pain (principal)
CPT/HCPCS: 36415; 76856; 85025; 93976

== ENCOUNTER 2022-07-27 16:32 | Outpatient (CLI) | payer OTHER, SELFPAY ==
[2022-08-04 14:55] LABS: HPV Reflexed? NOT INDICATED
== END 2022-07-27 23:59 | disposition home or self-care (01) ==
LOC: LABSPEC 16:33
PROVIDERS: PCP Family Medicine; Visit Provider Nurse Practitioner Women's Health
DX: Z12.4 Encounter for screening for malignant neoplasm of cervix (principal)
CPT/HCPCS: 88175; G0145